=== PATIENT | female | born 1940 | race Caucasian/White ===

== ENCOUNTER 2017-05-05 05:32 | Inpatient (IN) | payer MEDICARE, SELFPAY ==
[2017-05-05] VITALS (10 sets, daily range): BP systolic 107–131; BP diastolic 64–79; PULSE 82–101; RESP 18–26; TEMP 36.6–37.1; O2SAT 89–98; BMI 19.0; BMI 20.3
--- NOTE | 2017-05-05 05:37 | NURSING ---
CALLED FOR EKG PER RN REQUEST, PULLED OLD EKG'S FOR
--- NOTE | 2017-05-05 05:47 | RAD_ITS ---
STUDY: X-RAY CHEST REASON FOR EXAM: Female, 76 years old. SOB WITH COUGH FOR SERVERAL WEEKS, NOT GETTING BETTER. HX OF ASTHMA. TECHNIQUE: Frontal and lateral views of the chest. COMPARISON: None. FINDINGS: Ill-defined groundglass opacities are seen in the right and left lung lower lobes may represent bilateral pneumonia. Hyperinflation is noted in both lungs suggesting COPD. There is no demonstrated pleural abnormality. Normal size heart. Normal mediastinum and vaibhav. Normal visualized pulmonary arteries. There is atherosclerotic calcification of the aortic arch with tortuosity. There are diffuse degenerative changes of the visualized thoracic spine. There is degenerative osteoarthritis of the bilateral shoulders. There is no demonstrated abnormality of the visualized soft tissue structures of the upper abdomen. RAD/Chest PA and Lateral IMPRESSION: Bilateral lower lobe pneumonia. Electronically Signed: Dm Stanton MD at 6:28 EST Tel , Service support ,
--- NOTE | 2017-05-05 05:47 | EKG12_ITS ---
Test Reason : SOB Blood Pressure : / mmHG Vent. Rate : 090 BPM Atrial Rate : 090 BPM P-R Int : 138 ms QRS Dur : 080 ms QT Int : 364 ms P-R-T Axes : 071 -12 060 degrees QTc Int : 445 ms Normal sinus rhythm Normal ECG Confirmed by RAIZA HDEZ ([id number]), electronic news gathering editor ARNOLD HADLEY ([id number]) on 05/06/2017 11:35:24 AM Referred By: ANGLE Confirmed By:RAIZA HDEZ
[2017-05-05] MEDS: Ipratropium/Albuterol Sulfate 3 ML AMPUL.NEB INHALATION (05:55)
[2017-05-05 06:18] LABS: Absolute Lymphocyte Count 1.49 X10^3/ul (0.83-4.51); Absolute Neutrophil Count 15.5 X10^3/uL (2.0-7.7); Basophil# 0.02 X10^3/uL; Basophil% 0.1 % (0-1); Differential Indicated SCAN CRITERIA MET; Eosinophil# 0.05 X10^3/uL; Eosinophils% 0.3 % (0-5); Hemoglobin 10.7 g/dl (12.0-15.0); Lymphocyte # 1.49 X10^3/ul (4.0); Lymphocyte % 7.8 % (19-41); Mean Corp Hgb Conc 32.4 g/gl (32-36); Mean Corpuscular Hgb 29.2 pg (27.0-32.0); Mean Corpuscular Volume 89.9 fL (81-99); Mean Platelet Vol. 10.2 fl (6.2-12.0); Monocyte# 1.81 X10^3/uL; Monocyte% 9.5 % (0-10); Neutrophil # 15.52 X10^3/uL (2.7-7.7); Neutrophil % 81.5 % (47-70); POSITIVE COUNT NO; POSITIVE DIFFERENTIAL YES; POSITIVE MORPHOLOGY NO; Platelet Count 362 K/mm3 (150-450); RBC Distribution Width CV 13.9 % (11.6-14.6); RBC Distribution Width SD 45.9 fl (35.1-43.9); Red Blood Count 3.67 M/mm3 (4.2-5.4); White Blood Count 19.1 K/mm3 (4.4-11.0)
--- NOTE | 2017-05-05 06:18 | ED.VISSUMM ---
- ER Visit Summary Date of Service: 05/05/17 Chief Complaint: Dyspnea, cough, wheeze History of Present Illness: The patient is a 76 F here with daughter who is additional informant presented with dyspnea, cough, wheeze for over 1 week. This report 3 weeks of symptoms, however daughter states not that long. She was seen here 6 days ago records noting having 4 days of symptoms. Daughter states diagnosed with COPD and flulike symptoms. She was sent home with symptomatic treatment. Patient with remote tobacco history. Asthma history. Daughter states he is memory history however undiagnosed dementia. Has appoint with Dr. Patel in 2 days. Denies chest pains. We discussed onset of symptoms and what has developed, patient unable to give definitive answers. Denies nausea, vomiting, diarrhea. Denies fever, chills, sweats. Denies any recent travel, surgeries, or immobilizations. No history of PE or DVT. Physical Examination: Vitals: Temp 97.9, pulse 101, respiration 23, blood pressure 107/79, pulse ox 89% room air. General: Alert and oriented to person and place, unable to tell year., no acute distress HEENT: Normocephalic, atraumatic. Moist mucosa membranes Neck: supple, nontender. Cardiovascular: Regular rate and rhythm, no murmurs Respiratory: Mild expiratory wheeze bilaterally, symmetric, no distress Abdomen: Soft, nontender, nondistended Extremities: Nontender, no edema, pulses intact ?4 Neuro: no focal neurological deficits. Test Results: EKG: Sinus rate of 90, no ST or T-wave changes. Artifacts at baseline. WBC 19, Cr. 0.8. Trop neg. d-dimer 2.2. CXR: bilateral basilar infitrate. Emergency Department Course and Treatment: Placed on O2 for hypoxia. Aerosol for mild wheezing. Reviewed records, negative w/u 6 days ago. No distress. mild tachycardia, low pulse ox. Cardiac w/u negative. WBC 19 from 14 6 days ago. low risk wells for PE, d-dimer obtained, elevated. CXR results bilat pneumonia. lactate and blood cx x 2 sent. Rocephin and zithromax IV for CAP. CTA chest ordered with elevated dimer. Discussed with Dr. Fall for admission. Vitals stable on re-evaluation. CTA confirms bilateral PNA. No PE. Treatment Plan: [] Disposition: Admit Impression: 1) sepsis 2) CAP 3) hypoxia This note was generated with [employer] dictation software. It may contain incorrect words, spelling, and punctuation that were not noted in review of the chart prior to signing ED Disposition - Plan for ED Patient: Disposition: Acute [facility] Chief Complaint: Shortness of Breath Diagnosis: Sepsis, Community acquired pneumonia, Hypoxia Referrals: Sofie Patel MD [Primary Care Provider] -
[2017-05-05 06:20] LABS: Anion Gap 10 (5-15); BUN 19 mg/dL (7-18); BUN/Creat Ratio 23.7 RATIO (10-20); Calcium,Total 9.3 mg/dL (8.5-10.1); Chloride 106 mmol/L (98-107); EST Glomerular Filtration Rate 74 mL/min (>60); Est Glom Filt Rate - Afr Amer 90 mL/min (>60); Estimated Creatinine Clearance 48.89 ml/min; Glucose 117 mg/dL (70-110); Potassium 3.2 mmol/L (3.5-5.1); Sodium Level 143 mmol/L (136-145)
[2017-05-05 06:21] LABS: D-Dimer Quantitative (DVT/PE) 2.22 FEU/ug/m (0.27-0.49)
--- NOTE | 2017-05-05 06:22 | ED.RN ---
LAB CALLS WITH CRITICAL RESULT, D-DIMER 2.22, DR. BARBOUR MADE AWARE.
--- NOTE | 2017-05-05 06:23 | CT_ITS ---
STUDY: CTA CHEST REASON FOR EXAM: Female, 76 years old. SOB. COUGH COPD RADIATION DOSAGE (If Supplied By Facility): CTDIvol = ( 9.92 ) mGy, DLP = ( 397.44 ) mGycm TECHNIQUE: The examination was performed with the intravenous administration of 75 ml of Isovue 370 contrast material. Post-processing of the angiographic images was performed, with multiplanar reformation and 3D reconstruction. Individualized dose optimization techniques were used for this CT. COMPARISON: None. FINDINGS: Normal enhancement of the main pulmonary artery and right and left pulmonary arteries. Normal enhancement of the bilateral peripheral pulmonary arteries. There is no demonstrated pulmonary embolism. There is atherosclerotic calcification of the aortic arch with tortuosity. There is no demonstrated aortic dissection. Normal heart and pericardium. Normal mediastinum. Normal hilar regions. Normal visualized trachea and bronchi. Diffuse ill-defined tree-in-bud opacities are seen in both lungs more prominent in lung bases consistent with bilateral pneumonia. Normal pulmonary parenchyma. Normal pleura. Normal chest wall structures. There are degenerative changes of thoracic spine. Normal visualized upper abdomen. CT/CTA Chest W/WO Contrast IMPRESSION: No demonstrated pulmonary embolism or arterial dissection. Bilateral pneumonia. Electronically Signed: Dm Stanton MD at 7:53 EST Tel , Service support ,
--- NOTE | 2017-05-05 07:02 | NURSING ---
DR NELSON IN ER
[2017-05-05] MEDS: Ceftriaxone 1 GM/50 ML BAG IV (07:16)
[2017-05-05 07:31] LABS: Lactic Acid 1.2 mmol/L (0.4-2.0)
--- NOTE | 2017-05-05 08:01 | HP.PCM_ITS ---
Problem List (1) COPD (chronic obstructive pulmonary disease) Status: Chronic (2) Depression Status: Chronic (3) Dementia Status: Suspected (4) Malnutrition Status: Suspected (5) Elevated d-dimer Status: Acute (6) Hypokalemia Status: Acute (7) Cough productive of purulent sputum Status: Acute (8) Shortness of breath Status: Acute (9) Hypertension Status: Chronic History of Present Illness Date of Admission: 05/05/17 Chief Complaint: Cough productive of green sputum with blood streaks, shortness of breath The patient is a 76 year old F with a past medical history of hypertension, COPD and depression who presented to the emergency room complaining of cough productive of green sputum with blood streaking and shortness of breath. She denies fever, chills, nausea, diarrhea, vomiting, abdominal pain, myalgias or arthralgias. She is with her family and they state she is more confused than her baseline. Vital signs at presentation to the emergency room were temperature 97.9, pulse rate 101, blood pressure 107/79, respiratory rate 23 and she was 89% saturated on room air. She does not have oxygen at home. She follows with Dr. Aguila as an OP and was last seen about 3 months ago. Significant lab included an elevated white blood cell count at 19.1 with left shift. Hemoglobin was low at 10.7 and the platelets were normal at 362,000. Potassium is low at 3.3 and the BUN is 19 with a creatinine of 0.8. Troponin was less than 0.02. D-dimer was elevated at 2.22 but the CTA of the chest was negative for pulmonary emboli. The CTA of the chest did show tree-in-bud appearance and was interpreted as bilateral pneumonia. EKG shows normal sinus rhythm with no suspicious ST or T-wave changes. She is being admitted to the hospital for PNA with hypoxemia. Past Medical History Past Medical History (Chronic Problems): Chronic Problems Hypertension (Chronic) Asthma (Chronic) COPD (chronic obstructive pulmonary disease) (Chronic) Depression (Chronic) Allergies lisinopril Allergy (Verified 05/05/17 05:37) Other orange juice [[place]erson Juice] Allergy (Verified 05/05/17 05:37) Rash Penicillins Allergy (Verified 05/05/17 05:37) Rash Home Medications: Ambulatory Orders Medication Instructions Recorded Atenolol 50 mg PO DAILY 12/05/13 Losartan Potassium [Cozaar] 25 mg PO DAILY 12/05/13 Montelukast [Singulair] 10 mg PO QHS 12/05/13 Calcium Carbonate [Calcium] 1,200 mg PO DAILY 09/24/14 Fluticasone 0.05% [Flonase Nasal 2 spray NASAL DAILY PRN PRN 09/24/14 [place]] Albuterol Inhaler [Ventolin Hfa] 1 - 2 puff INHALATION Q4H PRN PRN 04/29/17 #1 inhaler Aspirin E.C. 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 Denies: Difficulty Swallowing, Nasal Congestion, Post Nasal Drip, Sore Throat Cardiovascular: Denies: Chest Pain, Heaviness, Light Headedness, Orthopnea, Palpitations, Paroxysmal Noc. Dyspnea, Syncope Respiratory: Reports: Cough, Shortness of breath at rest, Shortness of breath upon exertion, Sputum production - Green with streaks of blood. Denies: Pleuritic Pain Gastrointestinal: Denies: Abdominal Pain, Diarrhea, Nausea, Vomiting Genitourinary: Denies: Dysuria Gynecological: Denies: Breast symptoms, Vaginal discharge Musculoskeletal: Reports: Joint stiffness. Denies: Arm Pain, Joint swelling Skin: Denies: Jaundice, Rash, Wounds Neurological: Reports: Confusion. Denies: Slurred speech, Focal weakness, Numbness, Tingling, Seizures Psychiatric: Reports: Depression Endocrine: Denies: Hx of Thyroiditis Hematologic/ Lymphatic: Denies: Hx of blood clot VTE Information - Inpt Only VTE Present on Admission: No VTE Mechan Device Prophylaxis: SCD's, Knee High RAIMUNDO Hose VTE Pharm Prophylaxis ordered?: Yes Patient Problems: Active and Suspected Problems Dementia (Suspected) Malnutrition (Suspected) Elevated d-dimer (Acute) Hypokalemia (Acute) Sepsis (Acute) Community acquired pneumonia (Acute) Hypoxia (Acute) - Physical Exam General: Alert, Confused - She is oriented to person and knows she is in the hospital but does not know the year or the season and tells me that she has been working in the garden. When she does not know the answer to a question she confabulates HEENT: Atraumatic, PERRLA, EOMI, - - [place] Oral: No Gingival or Mucosal Lesions/ Ulcerations, Dry Mucosa Neck: Supple, No JVD, Negative Carotid Bruits, No Nodes, Trachea Midline, - - Carotids have brisk upstroke and good pulse volume bilaterally Lungs: Diminished, Wheezes, - - She has a few coarse crackles, mostly in the bases. Cardiovascular: Regular rate, Regular Rhythm, Normal S1, Normal S2, No murmurs, No rub noted, No Gallop Abdomen: Bowel Sounds Present, Soft, Non Tender, Non-Distended Extremities: No clubbing, No cyanosis, No edema, Peripheral Pulses Normal Skin: No rashes, No breakdown Musculoskeletal: Muscle Wasting Lymphatic: - - No cervical or supraclavicular adenopathy Neurological: Cranial nerves II-XII grossly intact, Neuro grossly intact Psych/Mental Status: Depressed Vital Signs Temp Pulse Resp BP Pulse Ox 97.9 F 86 26 H 107/79 98 05/05/17 05:33 05/05/17 05:55 05/05/17 05:55 05/05/17 05:33 05/05/17 05:52 Oxygen Flow Rate 2 Oxygen Delivery Method Nasal Cannula Weight: 110 lb 10.753 oz Body Mass Index (BMI) 19.0 Laboratory Tests Past 24 Hrs 05/05/17 05/05/17 05/05/17 05:54 05:54 05:54 WBC 19.1 H RBC 3.67 L Hgb 10.7 L Hct 33.0 L MCV 89.9 MCH 29.2 MCHC 32.4 RDW 13.9 RDW Differential 45.9 H Plt Count 362 MPV 10.2 Immature Gran % (Auto) 0.800 Neut % (Auto) 81.5 H Lymph % (Auto) 7.8 L [place] % (Auto) 9.5 Eos % (Auto) 0.3 Baso % (Auto) 0.1 Absolute Neuts (auto) 15.5 H Absolute Lymphs (auto) 1.49 Total Counted Not Reportable D-Dimer Quant (PE/DVT) 2.22 H* Sodium 143 Potassium 3.2 L Chloride 106 Carbon Dioxide 27.0 Anion Gap 10 BUN 19 H Creatinine 0.80 Estim Creat Clear Calc 48.89 Est GFR (MDRD) Af Amer 90 Est GFR (MDRD) Non-Af 74 BUN/Creatinine Ratio 23.7 H Glucose 117 H Lactic Acid Calcium 9.3 Troponin I < 0.02 05/05/17 06:50 WBC RBC Hgb Hct MCV MCH MCHC RDW RDW Differential Plt Count MPV Immature Gran % (Auto) Neut % (Auto) Lymph % (Auto) [place] % (Auto) Eos % (Auto) Baso % (Auto) Absolute Neuts (auto) Absolute Lymphs (auto) Total Counted D-Dimer Quant (PE/DVT) Sodium Potassium Chloride Carbon Dioxide Anion Gap BUN Creatinine Estim Creat Clear Calc Est GFR (MDRD) Af Amer Est GFR (MDRD) Non-Af BUN/Creatinine Ratio Glucose Lactic Acid 1.2 Calcium Troponin I Assessment/Plan Active and Suspected Problems Dementia (Suspected) Malnutrition (Suspected) Elevated d-dimer (Acute) Hypokalemia (Acute) Sepsis (Acute) Community acquired pneumonia (Acute) Hypoxia (Acute) Impressions 1. Community-acquired pneumonia 2. Hypoxemia 3. Hypertension 4. Suspected malnutrition 5. Suspected dementia 6. COPD/asthma 7. Elevated d-dimer with no pulmonary emboli on CTA of the chest 8. Hypokalemia admit to the hospital initiate the PNA order set. Azithromycin and rocephin ordered. Received first dose in the ER consult Dr. Aguila and obtain his last PN and any PFT's Lovenox for DVT prophylaxis Duoneb aerosols Q 6H and Alb Q2H PRN steroids Will review the CTA with Dr. Aguila - I am concerned about the pleural based infiltrates She has a long smoking hx and has been losing weight and the D- Dimer is increased. Check a respiratory panel, influenza swab, urine for Legionella and streptococcal antigens and sputum culture. UA and urine culture W/U for treatable causes of dementia initiated Start Remeron at HS to stimulate the appetite Code Visit Inpatient E&M: 52987 Subs Hosp L3
--- NOTE | 2017-05-05 08:27 | NURSING ---
MED SURG CAP, HYPOXEMIA, EXAC OF COPD SEMENTI
[2017-05-05 10:11] LABS: AST(SGOT) 19 U/L (15-37); Alanine Aminotransfer ALT/SGPT 33 U/L (12-78); Albumin, Serum 2.8 g/dL (3.4-5.0); Alkaline Phosphatase 88 U/L (45-117); Bilirubin, Direct 0.15 mg/dL (0.00-0.30); Globulin 4.8 g/dL (2.2-4.2); Magnesium 1.7 mg/dL (1.6-2.6); Phosphorus 2.8 mg/dL (2.5-4.9); Protein, Total 7.6 g/dL (6.4-8.2)
--- NOTE | 2017-05-05 11:36 | NURSING ---
PT HAS GOTTEN UP WITHOUT USING CALL LIGHT X2 WITHIN 1/2 HOUR-WILL MOVE PT CLOSER TO DESK FOR SAFETY SOON A ROOM OPENS AND IS CLEANED
[2017-05-05 11:53] LABS: Mucous, Urine 0 SEEN /hpf (<or=2+)
[2017-05-05 11:55] LABS: Color, Urine Yellow (Yellow); Glucose, Dipstick Normal (Normal); Ketone-Dipstick Negative (Negative); Leukocyte Esterase-Dipstick 25 /ul (Negative); Nitrite-Dipstick Positive (Negative); Occult Blood-Urine 50 /ul (Negative); Protein-Dipstick 30 mg/dl (Negative); Urine Bilirubin Dipstick Negative (Negative); Urine Clarity Sl. Cloudy (Clear); Urine Urobilinogen Normal (Normal); Urine pH 6.5 (5.0 - 8.0)
[2017-05-05 12:01] LABS: Red Blood Cells-Urine 0-5 SEEN /hpf (0-5); Squamous Epithelial Cells - UA 0-5 SEEN /hpf (5-10); White Blood Cells 0-5 SEEN /hpf (0-5)
[2017-05-05 12:02] LABS: Bacteria 1+ /hpf (None Seen)
--- NOTE | 2017-05-05 12:05 | NURSING ---
I attempted to fax the release of information, but Mingo's office is closed for the day. It will need to be faxed tomorrow. . .
--- NOTE | 2017-05-05 17:37 | NURSING ---
PT MOVED TO ROOM 324 TO BE CLOSER TO DESK/SAFETY-BED EXIT REMAINS ON
[2017-05-05] MEDS: Ciprofloxacin 0.3% 2.5ml Bottle 1 DRP LEFT EYE (21:11)
[2017-05-05] MEDS: Sertraline 50 MG Tablet 75 MG PO (21:16)
[2017-05-05] MEDS: Mirtazapine 15 MG Tablet PO (21:16)
[2017-05-05] MEDS: Montelukast 10 MG Tablet PO (21:16)
[2017-05-06] VITALS (7 sets, daily range): BP systolic 107–149; BP diastolic 63–75; PULSE 61–96; RESP 16–20; TEMP 36.4–37.9; O2SAT 93–97
[2017-05-06 06:47] LABS: Hematocrit 31.5 % (37-47); Mean Corp Hgb Conc 31.7 g/gl (32-36); Mean Corpuscular Hgb 28.7 pg (27.0-32.0); Mean Corpuscular Volume 90.5 fL (81-99); Mean Platelet Vol. 10.3 fl (6.2-12.0); Platelet Count 371 K/mm3 (150-450); RBC Distribution Width CV 14.2 % (11.6-14.6); RBC Distribution Width SD 46.9 fl (35.1-43.9); Red Blood Count 3.48 M/mm3 (4.2-5.4); White Blood Count 19.6 K/mm3 (4.4-11.0)
--- NOTE | 2017-05-06 06:52 | PN_ITS ---
Patient Problems: Active and Suspected Problems Dementia (Suspected) Malnutrition (Suspected) Elevated d-dimer (Acute) Hypokalemia (Acute) Sepsis (Acute) Community acquired pneumonia (Acute) Hypoxia (Acute) Subjective: 76-year-old female admitted to the hospital on 05/05/2017 with community- acquired pneumonia, hypoxemia and exacerbation of COPD. Temp today is 100.3?F. Vital signs are stable. She is 94-95% saturated on a 3 L nasal cannula. Respiratory panel was negative. All lab was personally reviewed. Potassium is still mildly decreased at 3.4 despite supplementation. BUN is down to 16 and the creatinine is 0.72 today. She is somewhat drowsy today but wakes up and answers my questions. She is not tachypneic at rest. She does not appear to be in any distress. - Physical Exam General: Cooperative, No apparent distress HEENT: Atraumatic, PERRLA Oral: Dry Mucosa Neck: Supple, No JVD, Trachea Midline Lungs: Diminished, Wheezes - Wheezes are improving Cardiovascular: Regular rate, Regular Rhythm, Normal S1, Normal S2, No Gallop Abdomen: Bowel Sounds Present, Soft, Non Tender, Non-Distended Extremities: No cyanosis, No edema Skin: No rashes Neurological: Cranial nerves II-XII grossly intact, Neuro grossly intact Psych/Mental Status: Appropriate Vital Signs Temp Pulse Resp BP Pulse Ox 100.3 F H 96 20 H 145/75 H 94 05/06/17 03:30 05/06/17 03:30 05/06/17 03:30 05/06/17 03:30 05/06/17 03:30 Oxygen Flow Rate 3 Oxygen Delivery Method Nasal Cannula Weight: 111 lb 1.808 oz Body Mass Index (BMI) 20.3 Intake and Output for Last 24 Hours 05/04/17 05/05/17 05/06/17 23:59 23:59 23:59 Intake Total 300 / 300 Balance 300 / 300 Microbiology Past 72 Hours 05/05/17 11:00 Respiratory Panel (PCR) - Final Mucosa - Nasopharyngeal Laboratory Tests Past 24 Hrs 05/05/17 05/06/17 05/06/17 11:42 05:58 05:58 WBC Pending RBC Pending Hgb Pending Hct Pending MCV Pending MCH Pending MCHC Pending RDW Pending RDW Differential Pending Plt Count Pending Sodium Pending Potassium Pending Chloride Pending Carbon Dioxide Pending Anion Gap Pending BUN Pending Creatinine Pending Est GFR (MDRD) Af Amer Pending Est GFR (MDRD) Non-Af Pending BUN/Creatinine Ratio Pending Glucose Pending Calcium Pending Phosphorus Pending Magnesium Pending Total Bilirubin Pending AST Pending ALT Pending Alkaline Phosphatase Pending Total Protein Pending Albumin Pending Urine Color Yellow Urine Clarity Sl. Cloudy Urine pH 6.5 Ur Specific [place] 1.010 Urine Protein 30 H Urine Glucose (UA) Normal Urine Ketones Negative Urine Occult Blood 50 H Urine Nitrite Positive H Urine Bilirubin Negative Urine Urobilinogen Normal Ur Leukocyte Esterase 25 H Urine RBC 0-5 SEEN Urine WBC 0-5 SEEN Ur Squamous Epith Cells 0-5 SEEN Urine Bacteria 1+ Urine Mucus 0 SEEN Assessment/Plan Active and Suspected Problems Dementia (Suspected) Malnutrition (Suspected) Elevated d-dimer (Acute) Hypokalemia (Acute) Sepsis (Acute) Community acquired pneumonia (Acute) Hypoxia (Acute) Impressions 1. Community-acquired pneumonia. Has not been able to expectorate a sputum to send for culture or Gram stain. Her cough sounds loose. 2. Hypoxemia 3. Hypertension 4. malnutrition 5. Suspected dementia 6. COPD/asthma 7. Elevated d-dimer with no pulmonary emboli on CTA of the chest 8. Hypokalemia 9. Normochromic normocytic anemia Continue the Remeron for depression and to stimulate the appetite aerosols repeat a CXR in the AM prednisone 40 mg daily Ceftriaxone supplement K Recheck lab in the AM check TSH, ammonia Code Visit Inpatient E&M: 10862 Subs Hosp L2
[2017-05-06 07:01] LABS: Scan Indicated on CBC? Y/N NO
[2017-05-06 07:14] LABS: ALB/GLOB Ratio 0.5 RATIO (0.9-2.4); AST(SGOT) 25 U/L (15-37); Alanine Aminotransfer ALT/SGPT 30 U/L (12-78); Albumin, Serum 2.4 g/dL (3.4-5.0); Alkaline Phosphatase 95 U/L (45-117); Anion Gap 8 (5-15); BUN 16 mg/dL (7-18); BUN/Creat Ratio 22.2 RATIO (10-20); Chloride 107 mmol/L (98-107); Creatinine, Serum 0.72 mg/dL (0.55-1.02); EST Glomerular Filtration Rate 84 mL/min (>60); Est Glom Filt Rate - Afr Amer 101 mL/min (>60); Estimated Creatinine Clearance 39.04 ml/min; Globulin 4.6 g/dL (2.2-4.2); Glucose 88 mg/dL (70-110); Magnesium 1.9 mg/dL (1.6-2.6); Phosphorus 3.7 mg/dL (2.5-4.9); Potassium 3.4 mmol/L (3.5-5.1); Sodium Level 142 mmol/L (136-145)
[2017-05-06] MEDS: Losartan Potassium 25 MG Tablet PO (08:49)
[2017-05-06] MEDS: Aspirin E.C. 81 MG Tablet PO (08:49)
[2017-05-06] MEDS: Atenolol 50 MG Tablet PO (08:49)
[2017-05-06] MEDS: Ciprofloxacin 0.3% 2.5ml Bottle 1 DRP LEFT EYE ×4 (08:50→21:15)
[2017-05-06] MEDS: Calcium (Elemental) 500 MG Tablet 1000 MG PO (10:29)
[2017-05-06] MEDS: 0.9% NaCl Peripheral Flush Adult/Peds IV (11:15)
[2017-05-06] MEDS: Ceftriaxone 1 GM/50 ML BAG IV (11:15)
[2017-05-06 11:18] LABS: T4 Free Direct 1.58 ng/dL (0.76-1.46); Thyroid Stim Hormone (TSH) 0.21 uIU/mL (0.358-3.74)
--- NOTE | 2017-05-06 13:12 | CASEMGMT ---
JS MONTES called [id number] Diana Arguello who was listed as next of kin on chart. Patient is confused and alert to person. JS MONTES completed clinical nursing professor with Diana over the phone. Care providers, pharmacy, and demographics verified. See link attached. Diana states that she is unsure of discharge plan at this time. JS MONTES discussed different options with Diana including home with HHC, environmental engineering aide, assisted living and SNF. Patient has a daughter that is staying with her but is gone most day and patient is alone. Family has noticed over last couple months patient having more confusion. JS MONTES encouraged Diana to have family discuss patient's discharge needs and disposition. Diana stated that ideally they would like patient to discharge home and are interesting in HHC and private duty aides. JS MONTES left contact information with Diana and will follow-up in morning. Diana states she has no further needs or concerns at this time. CM to follow for discharge planning needs that may arise. Disposition Plan: TBD. JS MONTES will assist family will discharge planning. Anticipate home with [facility] and will provide resources for private duty aides.
[2017-05-06] MEDS: Ipratropium/Albuterol Sulfate 3 ML AMPUL.NEB INHALATION ×2 (13:25→19:40)
[2017-05-06] MEDS: Montelukast 10 MG Tablet PO (21:18)
[2017-05-06] MEDS: Mirtazapine 15 MG Tablet PO (21:18)
[2017-05-07] VITALS (9 sets, daily range): BP systolic 106–138; BP diastolic 56–64; PULSE 78–99; RESP 15–20; TEMP 36.7–36.9; O2SAT 94–95
[2017-05-07] MEDS: Ipratropium/Albuterol Sulfate 3 ML AMPUL.NEB INHALATION ×4 (01:15→19:09)
--- NOTE | 2017-05-07 05:55 | RAD_ITS ---
STUDY: X-RAY CHEST REASON FOR EXAM: Female, 76 years old. Cough. Pneumonia. TECHNIQUE: PA and lateral views of the chest. COMPARISON: Comparison is made with prior study dated May 05, 2017. FINDINGS: Hyperinflation. Persistent patchy infiltrates in both lower lobes worse on the left side. There has been mild improved aeration. There is no demonstrated pleural abnormality. Normal size heart. Normal mediastinum and vaibhav. Normal visualized pulmonary arteries. There is atherosclerotic calcification of the aortic arch with tortuosity. There are diffuse degenerative changes of the visualized thoracic spine. Normal visualized ribs, clavicles, and shoulders. There is no demonstrated abnormality of the visualized soft tissue structures of the upper abdomen. RAD/Chest PA and Lateral IMPRESSION: Since prior study, there has been mild improved aeration of the patchy infiltrates at both lower lobes. Electronically Signed: Hosea Cochran MD at 8:37 EST Tel [phone], Service support ,
[2017-05-07 08:28] LABS: Vitamin B12 1879 pg/mL (211-911)
[2017-05-07] MEDS: Sertraline 50 MG Tablet PO (08:36)
[2017-05-07] MEDS: Calcium (Elemental) 500 MG Tablet 1000 MG PO (08:36)
[2017-05-07] MEDS: Ciprofloxacin 0.3% 2.5ml Bottle 1 DRP LEFT EYE ×4 (08:36→21:09)
[2017-05-07] MEDS: Aspirin E.C. 81 MG Tablet PO (08:43)
[2017-05-07] MEDS: Atenolol 50 MG Tablet PO (08:43)
[2017-05-07] MEDS: Losartan Potassium 25 MG Tablet PO (08:43)
[2017-05-07] MEDS: 0.9% NaCl Peripheral Flush Adult/Peds IV (08:43)
--- NOTE | 2017-05-07 09:12 | CASEMGMT ---
JS MONTES received call from [id number] Diana. Diana stated that the family had discussed discharge options and they would like her to go to a SNF at discharge for rehab and then transition to home. Diana states the they would prefer [facility] for SNF. TANIA Vargas updated with request for SNF placement. JS MONTES will remain available for discharge needs that may arise.
--- NOTE | 2017-05-07 09:32 | CASEMGMT ---
Addendum entered by Dariana Vargas 05/07/17 09:48: Social Work Note Call from [facility] stating that she will not have any availability until 05/12. Placed call to Diana who would like an additional referral made to [facility]. Placed call to Anneliese who states she will review for appropriateness and update SW with their determination. Initial referral faxed to [facility]. MATTHEW Garcia Original Note: Social Work Note Referral received from JS Paredes - this date that pt's family is requesting placement and would like [facility]. Initial referral faxed and placed call to Eloisa at [facility] to update. Eloisa will notify if able to accept and initiate pre-cert. TANIA to continue to follow and assist with discharge planning. Plan: SNF pending acceptance and pre-cert. MATTHEW Garcia
[2017-05-07] MEDS: Ceftriaxone 1 GM/50 ML BAG IV (09:40)
--- NOTE | 2017-05-07 11:32 | CASEMGMT ---
Addendum entered by Dariana Vargas 05/07/17 13:16: Social Work Note VM from Eloisa stating that she may have a bed at [facility]. Placed return phone call and left message for Eloisa to call SW back. Return phone call from Anneliese at [facility], stating that they cannot accept the pt. SW to continue to follow and assist with discharge planning. MATTHEW Garcia Original Note: Social Work Note Placed call to Anneliese at [facility] and left vm inquiring if they had been able to review the referral and what their determination was. SW to continue to follow and assist with discharge planning. MATTHEW Garcia
--- NOTE | 2017-05-07 14:33 | CASEMGMT ---
Social Work Note Jovan also does not have a bed. Placed call to [facility] and Barbara confirms that they do not have a bed. Call to Mitra at [facility] who states she may come Wednesday or Wednesday, but would not review a referral until then. Placed call to Linda who states she does not have a bed at this time and could reevaluate on Wednesday if the pt is still here. Pt's name left on list. Placed call to pt's [id number], Diana, and informed of the above. Educate to other facilities such as [facility] ([place]), [facility] ([place] and [facility], [facility], and [facility] ([place]). Diana states she will call some family and get back to with preference. Will continue to follow and assist with discharge planning. Plan: SNF pending acceptance. MATTHEW Garcia
--- NOTE | 2017-05-07 15:15 | PCM.PROGNOTE ---
Patient Problems: Active and Suspected Problems Dementia (Suspected) Malnutrition (Suspected) Elevated d-dimer (Acute) Hypokalemia (Acute) Sepsis (Acute) Community acquired pneumonia (Acute) Hypoxia (Acute) Subjective: Day #3 Rocephin and azithromycin All events of the past 24 hours of been reviewed. She is afebrile. Vital signs are stable. She is 94% saturated on a 2 L nasal cannula currently. Fluid balance since admission is +2701 cc. TSH is low at 0.21 and the free T4 is elevated at 1.58. B12 is 1879. Urine is positive for a gram-negative abdifatah, lactose counter dish carrier. Sputum Gram stain has 2+ white blood cells with no organisms. Blood cultures had no growth after 48 hours. Respiratory culture is pending. Chest x-ray today shows some clearing of the patchy infiltrates in the bases of the lungs. She continues to have hyperinflation. She looks much better today. THe confusion has improved. she was appropriate with me......did not remember me from the ER or when I saw her yesterday. - Physical Exam General: Alert, Cooperative, No apparent distress HEENT: Atraumatic, PERRLA, EOMI, Normocephalic Oral: No Gingival or Mucosal Lesions/ Ulcerations, Dry Mucosa Neck: Supple, No JVD, No Nuchal Rigidity, Trachea Midline, Thyroid Normal Size and Texture Lungs: Rales - in the bases, Rhonchi, - - not tachypneic, no accessory muscle use, no conversational dyspnea. Cardiovascular: Regular Rhythm, Normal S1, Normal S2, No Gallop, - - increased resting HR. Abdomen: Bowel Sounds Present, Soft, Non Tender, Non-Distended Extremities: No clubbing, No cyanosis, No edema Neurological: Cranial nerves II-XII grossly intact, Neuro grossly intact Psych/Mental Status: Appropriate Vital Signs Temp Pulse Resp BP Pulse Ox 98.2 F 97 18 119/62 94 05/07/17 14:05 05/07/17 14:05 05/07/17 14:05 05/07/17 14:05 05/07/17 14:05 Oxygen Flow Rate 2 Oxygen Delivery Method Venturi Mask Weight: 111 lb 1.808 oz Body Mass Index (BMI) 20.3 Intake and Output for Last 24 Hours 05/05/17 05/06/17 05/07/17 23:59 23:59 23:59 Intake Total 300 / 300 1278 / 1278 1473 / 1473 Output Total 350 / 350 Balance 300 / 300 1278 / 1278 1123 / 1123 Microbiology Past 72 Hours 05/07/17 08:46 Gram Stain - Final Sputum, Expectorated/Coughed 05/05/17 11:42 Urine Culture - Final Urine, Clean Catch GNR lactose counter dish carrier 05/06/17 11:10 Streptococcus pneumoniae Antigen (M - Final Urine, Clean Catch 05/06/17 11:10 Legionella Antigen - Final Urine, Clean Catch 05/05/17 11:00 Respiratory Panel (PCR) - Final Mucosa - Nasopharyngeal Laboratory Tests Past 24 Hrs 05/06/17 05:58 Vitamin B12 1879 H Assessment/Plan Active and Suspected Problems Dementia (Suspected) Malnutrition (Suspected) Elevated d-dimer (Acute) Hypokalemia (Acute) Sepsis (Acute) Community acquired pneumonia (Acute) Hypoxia (Acute) Impressions 1. Community-acquired pneumonia. Has not been able to expectorate a sputum to send for culture or Gram stain. Her cough sounds loose. 2. Hypoxemia 3. Hypertension 4. malnutrition 5. Suspected dementia 6. COPD/asthma 7. Elevated d-dimer with no pulmonary emboli on CTA of the chest 8. Hypokalemia 9. Normochromic normocytic anemia Continue the Remeron for depression and to stimulate the appetite Decrease the Zoloft to 50 mg daily Check a T3 and anti-thyroid antibodies thyroid US Continue the antibiotics Add IS and PEP DC the IV fluids Ambulated 375 feet with PT today and FWW with SBA Ambulatory pulse ox on room air prior to discharge Continue the Prednisone 40 mg daily Recheck the lab in the AM Code Visit Inpatient E&M: 63244 Subs Hosp L2
--- NOTE | 2017-05-07 15:16 | US_ITS ---
STUDY: THYROID ULTRASOUND REASON FOR EXAM: Female, 76 years old. Abnormal laboratory values TECHNIQUE: Ultrasound evaluation of the thyroid was performed with real-time and static méndez-scale imaging. COMPARISON: None. FINDINGS: RIGHT LOBE: The right lobe of the thyroid gland measures 4.2 x 1.3 x 1.6 cm. There is a homogeneous echotexture. There is a solid nodule in the midpole measuring 4 mm. LEFT LOBE: The left lobe of the thyroid gland measures 3.8 x 1.5 x 1.9 cm. There is a homogeneous echotexture. There is a solid nodule in the midpole measuring 3 mm. There is a solid nodule in the inferior pole measuring 8 mm. ISTHMUS: The isthmus measures 2 mm . The regional lymph nodes are normal. US/Thyroid IMPRESSION: There are bilateral thyroid nodules. Thyroid gland is normal in size with homogenous echotexture and normal blood flow. Electronically Signed: Cisco Jaime MD at 0:58 EST , Service support ,
--- NOTE | 2017-05-07 15:19 | PN_ITS ---
Patient Problems: Active and Suspected Problems Dementia (Suspected) Malnutrition (Suspected) Elevated d-dimer (Acute) Hypokalemia (Acute) Sepsis (Acute) Community acquired pneumonia (Acute) Hypoxia (Acute) Subjective: Day #3 Rocephin and azithromycin All events of the past 24 hours of been reviewed. She is afebrile. Vital signs are stable. She is 94% saturated on a 2 L nasal cannula currently. Fluid balance since admission is +2701 cc. TSH is low at 0.21 and the free T4 is elevated at 1.58. B12 is 1879. Urine is positive for a gram-negative abdifatah, lactose boiler water tester. Sputum Gram stain has 2+ white blood cells with no organisms. Blood cultures had no growth after 48 hours. Respiratory culture is pending. Chest x-ray today shows some clearing of the patchy infiltrates in the bases of the lungs. She continues to have hyperinflation. She looks much better today. THe confusion has improved. she was appropriate with me......did not remember me from the ER or when I saw her yesterday. - Physical Exam General: Alert, Cooperative, No apparent distress HEENT: Atraumatic, PERRLA, EOMI, Normocephalic Oral: No Gingival or Mucosal Lesions/ Ulcerations, Dry Mucosa Neck: Supple, No JVD, No Nuchal Rigidity, Trachea Midline, Thyroid Normal Size and Texture Lungs: Rales - in the bases, Rhonchi, - - not tachypneic, no accessory muscle use, no conversational dyspnea. Cardiovascular: Regular Rhythm, Normal S1, Normal S2, No Gallop, - - increased resting HR. Abdomen: Bowel Sounds Present, Soft, Non Tender, Non-Distended Extremities: No clubbing, No cyanosis, No edema Neurological: Cranial nerves II-XII grossly intact, Neuro grossly intact Psych/Mental Status: Appropriate Vital Signs Temp Pulse Resp BP Pulse Ox 98.2 F 97 18 119/62 94 05/07/17 14:05 05/07/17 14:05 05/07/17 14:05 05/07/17 14:05 05/07/17 14:05 Oxygen Flow Rate 2 Oxygen Delivery Method Venturi Mask Weight: 111 lb 1.808 oz Body Mass Index (BMI) 20.3 Intake and Output for Last 24 Hours 05/05/17 05/06/17 05/07/17 23:59 23:59 23:59 Intake Total 300 / 300 1278 / 1278 1473 / 1473 Output Total 350 / 350 Balance 300 / 300 1278 / 1278 1123 / 1123 Microbiology Past 72 Hours 05/07/17 08:46 Gram Stain - Final Sputum, Expectorated/Coughed 05/05/17 11:42 Urine Culture - Final Urine, Clean Catch GNR lactose boiler water tester 05/06/17 11:10 Streptococcus pneumoniae Antigen (M - Final Urine, Clean Catch 05/06/17 11:10 Legionella Antigen - Final Urine, Clean Catch 05/05/17 11:00 Respiratory Panel (PCR) - Final Mucosa - Nasopharyngeal Laboratory Tests Past 24 Hrs 05/06/17 05:58 Vitamin B12 1879 H Assessment/Plan Active and Suspected Problems Dementia (Suspected) Malnutrition (Suspected) Elevated d-dimer (Acute) Hypokalemia (Acute) Sepsis (Acute) Community acquired pneumonia (Acute) Hypoxia (Acute) Impressions 1. Community-acquired pneumonia. Has not been able to expectorate a sputum to send for culture or Gram stain. Her cough sounds loose. 2. Hypoxemia 3. Hypertension 4. malnutrition 5. Suspected dementia 6. COPD/asthma 7. Elevated d-dimer with no pulmonary emboli on CTA of the chest 8. Hypokalemia 9. Normochromic normocytic anemia Continue the Remeron for depression and to stimulate the appetite Decrease the Zoloft to 50 mg daily Check a T3 and anti-thyroid antibodies thyroid US Continue the antibiotics Add IS and PEP DC the IV fluids Ambulated 375 feet with PT today and FWW with SBA Ambulatory pulse ox on room air prior to discharge Continue the Prednisone 40 mg daily Recheck the lab in the AM Code Visit Inpatient E&M: 19466 Subs Hosp L2
--- NOTE | 2017-05-07 15:24 | CASEMGMT ---
Social Work Note Call from Diana, inquiring about the [place] facilities. Inform that SW placed call to both, as well as [facility] and none are in network. Go through list of facilities over the phone and Diana states she will need to discuss further with family. Inform that SW will leave a list of in network facilities in the patient's room. Diana requests that SW leave this at the nurse's station as she fears the pt will try to get up to get the list if it is in the room. Diana to be in this evening and will update Wednesday SW with their determination. Pt will be here through the weekend pending placement and pre-cert unless family opts to take her home. MATTHEW GarciaW
[2017-05-07 17:02] LABS: Free T3 1.4 pg/mL (2.18-3.98)
[2017-05-07] MEDS: Mirtazapine 15 MG Tablet PO (21:09)
[2017-05-07] MEDS: Montelukast 10 MG Tablet PO (21:09)
[2017-05-08] VITALS (10 sets, daily range): BP systolic 109–113; BP diastolic 71–78; PULSE 63–95; RESP 15–20; TEMP 36.8–36.9; O2SAT 83–97
[2017-05-08] MEDS: Ipratropium/Albuterol Sulfate 3 ML AMPUL.NEB INHALATION ×2 (01:16→06:41)
[2017-05-08 07:11] LABS: Hemoglobin 9.4 g/dl (12.0-15.0); Mean Corp Hgb Conc 32.4 g/gl (32-36); Mean Corpuscular Hgb 29.6 pg (27.0-32.0); Mean Corpuscular Volume 91.2 fL (81-99); Mean Platelet Vol. 10.3 fl (6.2-12.0); Platelet Count 365 K/mm3 (150-450); RBC Distribution Width CV 13.6 % (11.6-14.6); Red Blood Count 3.18 M/mm3 (4.2-5.4); White Blood Count 21.2 K/mm3 (4.4-11.0)
[2017-05-08 07:18] LABS: Scan Indicated on CBC? Y/N NO
[2017-05-08 07:23] LABS: Anion Gap 8 (5-15); BUN 20 mg/dL (7-18); BUN/Creat Ratio 28.5 RATIO (10-20); Calcium,Total 8.9 mg/dL (8.5-10.1); Chloride 112 mmol/L (98-107); EST Glomerular Filtration Rate 87 mL/min (>60); Est Glom Filt Rate - Afr Amer 105 mL/min (>60); Estimated Creatinine Clearance 39.04 ml/min; Glucose 88 mg/dL (70-110); Magnesium 1.9 mg/dL (1.6-2.6); Potassium 3.3 mmol/L (3.5-5.1); Sodium Level 147 mmol/L (136-145)
[2017-05-08] MEDS: Ceftriaxone 1 GM/50 ML BAG IV (08:58)
[2017-05-08] MEDS: Ciprofloxacin 0.3% 2.5ml Bottle 1 DRP LEFT EYE ×4 (09:06→20:50)
[2017-05-08] MEDS: Calcium (Elemental) 500 MG Tablet 1000 MG PO (09:07)
[2017-05-08] MEDS: Aspirin E.C. 81 MG Tablet PO (09:07)
[2017-05-08] MEDS: Atenolol 50 MG Tablet PO (09:09)
[2017-05-08] MEDS: Sertraline 50 MG Tablet PO (09:09)
[2017-05-08] MEDS: Losartan Potassium 25 MG Tablet PO (09:09)
--- NOTE | 2017-05-08 11:40 | CASEMGMT ---
SOCIAL WORK: [id number], Diana, requested to meet with hospital social worker in patient's room. Introduced self accordingly; patient appeared pleasantly confused. Diana restated that family's first choice is [facility]; second choice is [facility] and third [facility]. She did, however, voice understanding that these facilities do not have any current openings and provided this SW with the following alternative choices in this order: [facility] and [facility]. SW advised [id number] that I will fax referrals today and that primary hospital social worker can follow up with facilities on Wednesday to determine bed availability. Reminded her that a pre-cert is required per insurance. Diana voiced understanding and agreement with above. No further needs or questions identified. Referral information, including PT/OT evaluations, faxed to Haley at [facility] and Vivien at [facility]; request for them to follow up with Mattie WE[facility], on Wednesday. Payton JO,ABIMBOLA
[2017-05-08] MEDS: ALPRAZolam 0.25 MG Tablet 0.125 MG PO (16:10)
--- NOTE | 2017-05-08 19:22 | PN_ITS ---
Patient Problems: Active and Suspected Problems Dementia (Suspected) Malnutrition (Suspected) Elevated d-dimer (Acute) Hypokalemia (Acute) Sepsis (Acute) Community acquired pneumonia (Acute) Hypoxia (Acute) Subjective: All events of the past 24 hours of been reviewed. Patient is very animated today and talkative. Pulse ox was 84% with ambulation on room air and 95% at rest on room air. He was 92% ambulating on 2 L nasal cannula. White blood cell count today is 21.2 but she is on high-dose steroids. Potassium is low at 3.3. BUN is 20 with a creatinine of 0.7 and the BUN is likely elevated secondary to steroids. Urine culture was positive for gram-negative abdifatah however patient only had less than 1000 colonies and this is contaminant. Thyroid ultrasound showed 3 solid nodules. He denies chest pain. Her cough is improving. - Physical Exam General: Alert, Cooperative, Confused, - HEENT: Atraumatic, PERRLA Oral: Moist Mucosa Neck: Supple, No Nodes, No Nuchal Rigidity, Trachea Midline Lungs: No rhonchi, Diminished, - - coarse crackkles in the bases. Not tachypneic and no conversational dyspnea. Cardiovascular: Regular Rhythm, Normal S1, Normal S2, No rub noted, No Gallop, - - resting HR is increased Abdomen: Bowel Sounds Present, Soft, Non Tender, Non-Distended Extremities: No clubbing, No cyanosis, No edema Skin: No rashes, No breakdown Neurological: Cranial nerves II-XII grossly intact, Neuro grossly intact Psych/Mental Status: Hallucinations - likely due to the hyperthyroidism Vital Signs Temp Pulse Resp BP Pulse Ox 98.2 F 63 18 109/71 92 05/08/17 09:30 05/08/17 12:57 05/08/17 12:57 05/08/17 09:30 05/08/17 16:00 Oxygen Flow Rate 2 Oxygen Delivery Method Nasal Cannula Weight: 111 lb 1.808 oz Body Mass Index (BMI) 20.3 Intake and Output for Last 24 Hours 05/06/17 05/07/17 05/08/17 23:59 23:59 23:59 Intake Total 1278 / 1278 2092 / 2092 550 / 550 Output Total 350 / 350 250 / 250 Balance 1278 / 1278 1742 / 1742 300 / 300 Microbiology Past 72 Hours 05/07/17 08:46 Gram Stain - Final Sputum, Expectorated/Coughed Respiratory Culture - Preliminary Culture exhibits no growth. 05/05/17 11:42 Urine Culture - Final Urine, Clean Catch GNR lactose ibm websphere portal developer 05/06/17 11:10 Streptococcus pneumoniae Antigen (M - Final Urine, Clean Catch 05/06/17 11:10 Legionella Antigen - Final Urine, Clean Catch Laboratory Tests Past 24 Hrs 05/08/17 05/08/17 05/08/17 06:41 06:41 06:41 WBC 21.2 H RBC 3.18 L Hgb 9.4 L Hct 29.0 L MCV 91.2 MCH 29.6 MCHC 32.4 RDW 13.6 RDW Differential 44.0 H Plt Count 365 MPV 10.3 Sodium 147 H Potassium 3.3 L Chloride 112 H Carbon Dioxide 27.0 Anion Gap 8 BUN 20 H Creatinine 0.70 Estim Creat Clear Calc 39.04 Est GFR (MDRD) Af Amer 105 Est GFR (MDRD) Non-Af 87 BUN/Creatinine Ratio 28.5 H Glucose 88 Calcium 8.9 Magnesium 1.9 PTH Intact Pending Assessment/Plan Active and Suspected Problems Dementia (Suspected) Malnutrition (Suspected) Elevated d-dimer (Acute) Hypokalemia (Acute) Sepsis (Acute) Community acquired pneumonia (Acute) Hypoxia (Acute) Impressions 1. Community-acquired pneumonia. 2. Hypoxemia 3. Hypertension 4. malnutrition 5. Suspected dementia 6. COPD/asthma 7. Elevated d-dimer with no pulmonary emboli on CTA of the chest 8. Hypokalemia 9. Normochromic normocytic anemia 10. hyperthyroidism with 3 solid nodules on the thyroid US. Thyroid antibodies pending. Continue the Remeron for depression and to stimulate the appetite Decrease the steroids Xanax PRN to calm her down a little. Thyroid nuclear scan on Wednesday.....if cold nodules will need a bx. Will need to follow up with Endocrinology going forward Start PTU after the thyroid US has been done Talked with her dtr-in-law Diana today and answered questions to her satisfaction. She thinks that pt will need to go to SNF at [place]. She will need a pre-cert. May need O2 at DC....will need an ambulatory pulse ox prior to discharge Convert to an oral antibiotic tomorrow Code Visit Inpatient E&M: 01397 Subs Hosp L2
[2017-05-08] MEDS: Mirtazapine 15 MG Tablet PO (20:49)
[2017-05-08] MEDS: Montelukast 10 MG Tablet PO (20:49)
[2017-05-09] VITALS (9 sets, daily range): BP systolic 102–141; BP diastolic 58–73; PULSE 78–83; RESP 15–20; TEMP 36.7–37.2; O2SAT 94–98
--- NOTE | 2017-05-09 07:03 | PCM.PROGNOTE ---
Patient Problems: Active and Suspected Problems Dementia (Suspected) Malnutrition (Suspected) Elevated d-dimer (Acute) Hypokalemia (Acute) Sepsis (Acute) Community acquired pneumonia (Acute) Hypoxia (Acute) Subjective: 76-year-old female admitted to the hospital with acute exacerbation of COPD secondary to community-acquired pneumonia. Found to be hyperthyroid with low TSH and elevated T4. Thyroid ultrasound reveals 3 solid nodules. Antithyroid antibodies pending. Thyroid nuclear scan ordered for 05/10/2017. If cold nodules will need a bx. She thinks her mother had thyroid disease. She has been afebrile since 05/06/2017. Vital signs are stable. She is 94-98% saturated on room air. Sputum Gram stain is presumptive for Maryam albicans only. Legionella and streptococcal antigens were negative. Urine has a gram-negative abdifatah lactose industrial gas servicer helper however there is less than 1000 colonies and this is likely contaminant. Blood cultures had no growth after the 8 hours. She has no complaints today except that she wants to go home. She is VERY talkative and has been trying to leave. She pulled 2 IV's out. She has less flight of ideas today than yesterday. Denies SOB, rare cough, no diarrhea and no nausea. - Physical Exam General: Alert, Cooperative, No apparent distress, Confused HEENT: Atraumatic, PERRLA, EOMI Oral: Moist Mucosa Neck: Supple Lungs: Clear to auscultation, No wheeze, No rales Cardiovascular: Regular rate, Regular Rhythm, Normal S1, Normal S2, No rub noted, No Gallop Abdomen: Bowel Sounds Present, Soft, Non Tender, Non-Distended Extremities: No edema, No Calf Tenderness Vital Signs Temp Pulse Resp BP Pulse Ox 98.2 F 78 15 141/73 H 98 05/09/17 04:43 05/09/17 04:43 05/09/17 04:43 05/09/17 04:43 05/09/17 04:43 Oxygen Flow Rate 3 Oxygen Delivery Method Nasal Cannula Weight: 111 lb 1.808 oz Body Mass Index (BMI) 20.3 Intake and Output for Last 24 Hours 05/07/17 05/08/17 05/09/17 23:59 23:59 23:59 Intake Total 2 / 2092 550 / 550 150 / 150 Output Total 350 / 350 250 / 250 Balance 1742 / 1742 300 / 300 150 / 150 Microbiology Past 72 Hours 05/07/17 08:46 Gram Stain - Final Sputum, Expectorated/Coughed Respiratory Culture - Preliminary Culture exhibits no growth. 05/05/17 11:42 Urine Culture - Final Urine, Clean Catch GNR lactose industrial gas servicer helper 05/06/17 11:10 Streptococcus pneumoniae Antigen (M - Final Urine, Clean Catch 05/06/17 11:10 Legionella Antigen - Final Urine, Clean Catch Laboratory Tests Past 24 Hrs 05/08/17 05/08/17 05/08/17 06:41 06:41 06:41 WBC 21.2 H RBC 3.18 L Hgb 9.4 L Hct 29.0 L MCV 91.2 MCH 29.6 MCHC 32.4 RDW 13.6 RDW Differential 44.0 H Plt Count 365 MPV 10.3 Sodium 147 H Potassium 3.3 L Chloride 112 H Carbon Dioxide 27.0 Anion Gap 8 BUN 20 H Creatinine 0.70 Estim Creat Clear Calc 39.04 Est GFR (MDRD) Af Amer 105 Est GFR (MDRD) Non-Af 87 BUN/Creatinine Ratio 28.5 H Glucose 88 Calcium 8.9 Magnesium 1.9 PTH Intact Pending Assessment/Plan Active and Suspected Problems Dementia (Suspected) Malnutrition (Suspected) Elevated d-dimer (Acute) Hypokalemia (Acute) Sepsis (Acute) Community acquired pneumonia (Acute) Hypoxia (Acute) Day #5 antibiotics Impressions 1. Community-acquired pneumonia. Started Rocephin and Azithromycin at admission...Will transition to Cedinir today since she has pulled her IV out twice and she is better 2. Hypoxemia 3. Hypertension 4. malnutrition 5. Suspected dementia vs metabolic encephalopathy due to hyperthyroidism 6. COPD/asthma with acute exacerbation treated with aerosols and steroids 7. Elevated d-dimer with no pulmonary emboli on CTA of the chest 8. Hypokalemia 9. Normochromic normocytic anemia 10. hyperthyroidism with 3 solid nodules on the thyroid US. Thyroid antibodies pending. 11. Depression Continue the Remeron for depression and to stimulate the appetite. Wean sertraline off over the next 10 days. Thyroid nuclear scan tomorrow - may need thyroid biopsy Will need to follow up with endocrinology to arrange definitive treatment for hyperthyroidism Start PTU after the nuclear scan - I suspect it will help with the hallucinations and hyperactivity. Ambulatory pulse ox on RA prior to DC DC the steroids today since they seem to be increasing the hyperactivity and flight of ideas Code Visit Inpatient E&M: 56931 Subs Hosp L2
[2017-05-09] MEDS: Ipratropium/Albuterol Sulfate 3 ML AMPUL.NEB INHALATION ×2 (07:08→13:24)
--- NOTE | 2017-05-09 07:09 | PN_ITS ---
Patient Problems: Active and Suspected Problems Dementia (Suspected) Malnutrition (Suspected) Elevated d-dimer (Acute) Hypokalemia (Acute) Sepsis (Acute) Community acquired pneumonia (Acute) Hypoxia (Acute) Subjective: 76-year-old female admitted to the hospital with acute exacerbation of COPD secondary to community-acquired pneumonia. Found to be hyperthyroid with low TSH and elevated T4. Thyroid ultrasound reveals 3 solid nodules. Antithyroid antibodies pending. Thyroid nuclear scan ordered for 05/10/2017. If cold nodules will need a bx. She thinks her mother had thyroid disease. She has been afebrile since 05/06/2017. Vital signs are stable. She is 94-98% saturated on room air. Sputum Gram stain is presumptive for Maryam albicans only. Legionella and streptococcal antigens were negative. Urine has a gram-negative abdifatah lactose pre assembly wirer however there is less than 1000 colonies and this is likely contaminant. Blood cultures had no growth after the 8 hours. She has no complaints today except that she wants to go home. She is VERY talkative and has been trying to leave. She pulled 2 IV's out. She has less flight of ideas today than yesterday. Denies SOB, rare cough, no diarrhea and no nausea. - Physical Exam General: Alert, Cooperative, No apparent distress, Confused HEENT: Atraumatic, PERRLA, EOMI Oral: Moist Mucosa Neck: Supple Lungs: Clear to auscultation, No wheeze, No rales Cardiovascular: Regular rate, Regular Rhythm, Normal S1, Normal S2, No rub noted , No Gallop Abdomen: Bowel Sounds Present, Soft, Non Tender, Non-Distended Extremities: No edema, No Calf Tenderness Vital Signs Temp Pulse Resp BP Pulse Ox 98.2 F 78 15 141/73 H 98 05/09/17 04:43 05/09/17 04:43 05/09/17 04:43 05/09/17 04:43 05/09/17 04:43 Oxygen Flow Rate 3 Oxygen Delivery Method Nasal Cannula Weight: 111 lb 1.808 oz Body Mass Index (BMI) 20.3 Intake and Output for Last 24 Hours 05/07/17 05/08/17 05/09/17 23:59 23:59 23:59 Intake Total 2 / 2092 550 / 550 150 / 150 Output Total 350 / 350 250 / 250 Balance 1742 / 1742 300 / 300 150 / 150 Microbiology Past 72 Hours 05/07/17 08:46 Gram Stain - Final Sputum, Expectorated/Coughed Respiratory Culture - Preliminary Culture exhibits no growth. 05/05/17 11:42 Urine Culture - Final Urine, Clean Catch GNR lactose pre assembly wirer 05/06/17 11:10 Streptococcus pneumoniae Antigen (M - Final Urine, Clean Catch 05/06/17 11:10 Legionella Antigen - Final Urine, Clean Catch Laboratory Tests Past 24 Hrs 05/08/17 05/08/17 05/08/17 06:41 06:41 06:41 WBC 21.2 H RBC 3.18 L Hgb 9.4 L Hct 29.0 L MCV 91.2 MCH 29.6 MCHC 32.4 RDW 13.6 RDW Differential 44.0 H Plt Count 365 MPV 10.3 Sodium 147 H Potassium 3.3 L Chloride 112 H Carbon Dioxide 27.0 Anion Gap 8 BUN 20 H Creatinine 0.70 Estim Creat Clear Calc 39.04 Est GFR (MDRD) Af Amer 105 Est GFR (MDRD) Non-Af 87 BUN/Creatinine Ratio 28.5 H Glucose 88 Calcium 8.9 Magnesium 1.9 PTH Intact Pending Assessment/Plan Active and Suspected Problems Dementia (Suspected) Malnutrition (Suspected) Elevated d-dimer (Acute) Hypokalemia (Acute) Sepsis (Acute) Community acquired pneumonia (Acute) Hypoxia (Acute) Day #5 antibiotics Impressions 1. Community-acquired pneumonia. Started Rocephin and Azithromycin at admission...Will transition to Cedinir today since she has pulled her IV out twice and she is better 2. Hypoxemia 3. Hypertension 4. malnutrition 5. Suspected dementia vs metabolic encephalopathy due to hyperthyroidism 6. COPD/asthma with acute exacerbation treated with aerosols and steroids 7. Elevated d-dimer with no pulmonary emboli on CTA of the chest 8. Hypokalemia 9. Normochromic normocytic anemia 10. hyperthyroidism with 3 solid nodules on the thyroid US. Thyroid antibodies pending. 11. Depression Continue the Remeron for depression and to stimulate the appetite. Wean sertraline off over the next 10 days. Thyroid nuclear scan tomorrow - may need thyroid biopsy Will need to follow up with endocrinology to arrange definitive treatment for hyperthyroidism Start PTU after the nuclear scan - I suspect it will help with the hallucinations and hyperactivity. Ambulatory pulse ox on RA prior to DC DC the steroids today since they seem to be increasing the hyperactivity and flight of ideas Code Visit Inpatient E&M: [id number] Subs Hosp L2
[2017-05-09] MEDS: Aspirin E.C. 81 MG Tablet PO (09:18)
[2017-05-09] MEDS: Calcium (Elemental) 500 MG Tablet 1000 MG PO (09:19)
[2017-05-09] MEDS: Ciprofloxacin 0.3% 2.5ml Bottle 1 DRP LEFT EYE ×4 (09:21→20:00)
[2017-05-09] MEDS: Sertraline 50 MG Tablet PO (09:24)
[2017-05-09] MEDS: Atenolol 50 MG Tablet PO (09:24)
[2017-05-09] MEDS: Losartan Potassium 25 MG Tablet PO (09:27)
[2017-05-09] MEDS: Ceftriaxone 1 GM/50 ML BAG IV (11:31)
--- NOTE | 2017-05-09 14:49 | NURSING ---
Pt had period of confusion earlier this afternoon. Pulled out IV and thought she was leaving. Notified Dr Fall that pt pulled IV, orders ok to leave out, abx switched to PO.
[2017-05-09] MEDS: ALPRAZolam 0.25 MG Tablet 0.125 MG PO (17:56)
[2017-05-09] MEDS: Mirtazapine 15 MG Tablet PO (19:59)
[2017-05-09] MEDS: Montelukast 10 MG Tablet PO (19:59)
[2017-05-09] MEDS: Cefdinir 300 MG Capsule PO (20:52)
[2017-05-10 02:00] VITALS: PULSE 74; RESP 15; O2SAT 94
[2017-05-10 05:07] VITALS: BP 138/71; PULSE 74; RESP 15; TEMP 36; O2SAT 94
--- NOTE | 2017-05-10 05:55 | RAD_ITS ---
STUDY: X-RAY CHEST REASON FOR EXAM: Female, 76 years old. History of pneumonia. Hypoxia. TECHNIQUE: PA and lateral views of the chest. COMPARISON: Comparison is made with prior study dated May 07, 2017. FINDINGS: Hyperinflation. Persistent bilateral patchy infiltrates worse in the lower lobes. Since prior study, there has been a mild improvement. There is no demonstrated pleural abnormality. Normal size heart. Normal mediastinum and vaibhav. Normal visualized pulmonary arteries. There is atherosclerotic calcification of the aortic arch with tortuosity. There are degenerative changes of the visualized thoracic spine. Normal visualized ribs, clavicles, and shoulders. There is evidence of a prior ventral hernia repair. RAD/Chest PA and Lateral IMPRESSION: Hyperinflation. Persistent bibasilar infiltrates. Since prior study, there has been further improvement. Electronically Signed: Hosea Cochran MD at 12:36 EST Tel [phone], Service support ,
[2017-05-10 06:30] LABS: Hematocrit 30.9 % (37-47); Hemoglobin 9.8 g/dl (12.0-15.0); Mean Corp Hgb Conc 31.7 g/gl (32-36); Mean Corpuscular Hgb 29.4 pg (27.0-32.0); Mean Corpuscular Volume 92.8 fL (81-99); Mean Platelet Vol. 10.5 fl (6.2-12.0); Platelet Count 401 K/mm3 (150-450); RBC Distribution Width SD 45.6 fl (35.1-43.9); Red Blood Count 3.33 M/mm3 (4.2-5.4); White Blood Count 15.4 K/mm3 (4.4-11.0)
[2017-05-10 06:49] LABS: Scan Indicated on CBC? Y/N NO
[2017-05-10 06:50] LABS: BUN 27 mg/dL (7-18); BUN/Creat Ratio 36.5 RATIO (10-20); Calcium,Total 8.8 mg/dL (8.5-10.1); Creatinine, Serum 0.74 mg/dL (0.55-1.02); EST Glomerular Filtration Rate 82 mL/min (>60); Est Glom Filt Rate - Afr Amer 99 mL/min (>60); Estimated Creatinine Clearance 39.04 ml/min; Glucose 81 mg/dL (70-110)
[2017-05-10 06:51] LABS: Anion Gap 6 (5-15); Chloride 106 mmol/L (98-107); Potassium 4.3 mmol/L (3.5-5.1); Sodium Level 143 mmol/L (136-145)
--- NOTE | 2017-05-10 06:52 | NURSING ---
INFORMED BY NUCLEAR MED THAT UNABLE TO DO THYROID IMAGING THIS AM BECAUSE PATIENT RCVD CONTRAST ON 05/[address] OF CHEST AND WILL HAVE TO WAIT 6 WEEKS.
[2017-05-10 07:45] VITALS: PULSE 85; RESP 16; O2SAT 95
[2017-05-10] MEDS: Ipratropium/Albuterol Sulfate 3 ML AMPUL.NEB INHALATION ×2 (07:45→13:33)
--- NOTE | 2017-05-10 08:26 | CASEMGMT ---
Addendum entered by Dariana Vargas 05/10/17 08:29: Social Work Note Return phone call from Chu. Updated to the information below and family in agreement. MATTHEW Garcia Original Note: Social Work Note Call from Linda, group product manager of TCU, stating that she now has a bed available and could initiate pre-cert. Pre-cert initiated. Placed call to pt's daughter in law, Chu to notify, and phone was picked up but no one on the other end and no option to leave a vm. SW to continue to follow and assist with discharge planning. Plan: TCU pending pre-cert. MATTHEW Garcia
[2017-05-10 09:00] LABS: PTHIN 19.6 pg/mL (18.4-80.1)
[2017-05-10 10:04] VITALS: BP 118/68; PULSE 96; RESP 20; TEMP 36.8; O2SAT 94
[2017-05-10] MEDS: Ciprofloxacin 0.3% 2.5ml Bottle 1 DRP LEFT EYE ×3 (10:07→17:28)
[2017-05-10] MEDS: Calcium (Elemental) 500 MG Tablet 1000 MG PO (10:08)
[2017-05-10] MEDS: Aspirin E.C. 81 MG Tablet PO (10:08)
[2017-05-10] MEDS: Cefdinir 300 MG Capsule PO (10:09)
[2017-05-10] MEDS: Sertraline 50 MG Tablet PO (10:09)
[2017-05-10] MEDS: Atenolol 50 MG Tablet PO (10:09)
[2017-05-10] MEDS: Losartan Potassium 25 MG Tablet PO (10:09)
[2017-05-10 13:32] VITALS: PULSE 83; RESP 16; O2SAT 89
--- NOTE | 2017-05-10 13:51 | CPS ---
pt placed back on 2 lpm
--- NOTE | 2017-05-10 14:02 | PCM.PN.HOSP ---
Patient Problems: Active and Suspected Problems Dementia (Suspected) Malnutrition (Suspected) Elevated d-dimer (Acute) Hypokalemia (Acute) Sepsis (Acute) Community acquired pneumonia (Acute) Hypoxia (Acute) Subjective: Patient was seen and examined. Waiting on TCU insurance precertification. Denies any chest pain or shortness of breath. No fevers noted. No acute events overnight. Patient was seen in consultation with his son, admits that patient has had cognitive impairment for the past 1 and half years with a [id number] help her with finances. Vitals/I&O's: Vital Signs Temp Pulse Resp BP Pulse Ox 98.2 F 83 16 118/68 89 05/10/17 10:04 05/10/17 13:32 05/10/17 13:32 05/10/17 10:04 05/10/17 13:32 Oxygen Flow Rate 2 Oxygen Delivery Method Room Air Weight: 50.4 kg Body Mass Index (BMI) 20.3 Intake and Output for Last 24 Hours 05/08/17 05/09/17 05/10/17 23:59 23:59 23:59 Intake Total 550 / 550 920 / 920 395 / 395 Output Total 250 / 250 Balance 300 / 300 920 / 920 395 / 395 General: Alert, Oriented x3, Cooperative, No apparent distress, - - on 3l nasal canula oxygen HEENT: Atraumatic, PERRLA, EOMI, Normocephalic Oral: Moist Mucosa Neck: Supple Lungs: Clear to auscultation, Normal air movement Cardiovascular: Regular rate, Regular Rhythm, Normal S1, Normal S2, No murmurs Abdomen: Bowel Sounds Present, Soft, Non Tender, Non-Distended, No Hepato-splenomegaly Extremities: No edema Skin: No rashes, No breakdown Musculoskeletal: No Tenderness to Palpation of Joints or Extremities Lymphatic: No Cervical, Supraclavicular, or Inguinal Adenopathy Neurological: Cranial nerves II-XII grossly intact Psych/Mental Status: Normal Affect, Appropriate Microbiology Past 72 Hours 05/07/17 08:46 Sputum, Expectorated/Coughed Gram Stain - Final 05/07/17 08:46 Sputum, Expectorated/Coughed Respiratory Culture - Final Presumptive C albicans Laboratory Results 05/08/17 06:41: PTH Intact 19.6 05/10/17 05:46: WBC 15.4 H, RBC 3.33 L, Hgb 9.8 L, Hct 30.9 L, MCV 92.8, MCH 29.4, MCHC 31.7 L, RDW 14.0, RDW Differential 45.6 H, Plt Count 401, MPV 10.5 05/10/17 05:46: Sodium 143, Potassium 4.3, Chloride 106, Carbon Dioxide 31.0, Anion Gap 6, BUN 27 H, Creatinine 0.74, Estim Creat Clear Calc 39.04, Est GFR (MDRD) Af Amer 99, Est GFR (MDRD) Non-Af 82, BUN/Creatinine Ratio 36.5 H, Glucose 81, Calcium 8.8 Current Medications Acetaminophen (Tylenol) 650 mg PO Q6H PRN PRN PRN Reason: PAIN Albuterol Sulfate (Ventolin Aerosols) 2.5 mg INHALATION Q2H PRN PRN PRN Reason: WHEEZING Albuterol/Ipratropium (Duoneb) 3 ml INHALATION Q6HWA.RT [facility] Last Admin: 05/10/17 13:33 Dose: 3 ml Alprazolam (Xanax) 0.125 mg PO TID PRN PRN PRN Reason: ANXIETY Last Admin: 05/09/17 17:56 Dose: 0.125 mg Aspirin (Ecotrin) 81 mg PO DAILY@0800 [facility] Last Admin: 05/10/17 10:08 Dose: 81 mg Atenolol (Tenormin (Beta Rui)) 50 mg PO DAILY [facility] Last Admin: 05/10/17 10:09 Dose: 50 mg Calcium Carbonate (Os-Fabián 500) [facility] Last Admin: 05/10/17 10:08 Dose: 1,000 mg Cefdinir (Omnicef [Equiv]) 300 mg PO Q12 [facility] Last Admin: 05/10/17 10:09 Dose: 300 mg Ciprofloxacin HCl (Ciloxan) 1 drop LEFT EYE 4X/DAY [facility] Stop: 05/11/17 22:01 Last Admin: 05/10/17 10:07 Dose: 1 drop Ketorolac Tromethamine (Acular Ls) 1 drop LEFT EYE 4X/DAY [facility] Last Admin: 05/10/17 10:08 Dose: 1 drop Losartan Potassium (Cozaar) 25 mg PO DAILY [facility] Last Admin: 01/22/18 10:09 Dose: 25 mg Magnesium Hydroxide (Milk Of Magnesia) 30 ml PO DAILY PRN PRN PRN Reason: Constipation Mirtazapine (Remeron) 15 mg PO DAILY@2100 [facility] Last Admin: 05/09/17 19:59 Dose: 15 mg Montelukast Sodium (Singulair) 10 mg PO QHS [facility] Last Admin: 05/09/17 19:59 Dose: 10 mg Potassium Chloride (K-Dur) 20 meq PO DAILYCM [facility] Last Admin: 05/10/17 10:09 Dose: 20 meq Prednisolone Acetate (Pred Forte 1 Ml) 1 drop LEFT EYE 4X/DAY [facility] Last Admin: 05/10/17 10:08 Dose: 1 drop Sertraline HCl (Zoloft) 50 mg PO QAM [facility] Last Admin: 05/10/17 10:09 Dose: 50 mg Sodium Chloride () 5 - 30 ml IV UD PRN PRN Reason: SALINE FLUSH Last Admin: 05/07/17 08:43 Dose: 10 ml Assessment/Plan Active and Suspected Problems Dementia (Suspected) Malnutrition (Suspected) Elevated d-dimer (Acute) Hypokalemia (Acute) Sepsis (Acute) Community acquired pneumonia (Acute) Hypoxia (Acute) 1. Community-acquired pneumonia, improved, on cefdinir now, 2. Acute hypoxic respiratory insufficiency secondary to community-acquired pneumonia, will continue to wean off oxygen for SPO2 of 94% 3. Hypertension 4. Suspected dementia vs metabolic encephalopathy due to hyperthyroidism 6. COPD/asthma with acute exacerbation treated with aerosols and steroids 7. Elevated d-dimer with no pulmonary emboli on CTA of the chest 8. Hypokalemia 9. Normochromic normocytic anemia 10. hyperthyroidism with 3 solid nodules on the thyroid US. Thyroid antibodies pending. 11. Depression 12. Disposition: DC to TCU when bed is ready
--- NOTE | 2017-05-10 14:05 | PN_ITS ---
Patient Problems: Active and Suspected Problems Dementia (Suspected) Malnutrition (Suspected) Elevated d-dimer (Acute) Hypokalemia (Acute) Sepsis (Acute) Community acquired pneumonia (Acute) Hypoxia (Acute) Subjective: Patient was seen and examined. Waiting on TCU insurance precertification. Denies any chest pain or shortness of breath. No fevers noted. No acute events overnight. Patient was seen in consultation with his son, admits that patient has had cognitive impairment for the past 1 and half years with a [id number] help her with finances. Vitals/I&O's: Vital Signs Temp Pulse Resp BP Pulse Ox 98.2 F 83 16 118/68 89 05/10/17 10:04 05/10/17 13:32 05/10/17 13:32 05/10/17 10:04 05/10/17 13:32 Oxygen Flow Rate 2 Oxygen Delivery Method Room Air Weight: 50.4 kg Body Mass Index (BMI) 20.3 Intake and Output for Last 24 Hours 05/08/17 05/09/17 05/10/17 23:59 23:59 23:59 Intake Total 550 / 550 920 / 920 395 / 395 Output Total 250 / 250 Balance 300 / 300 920 / 920 395 / 395 General: Alert, Oriented x3, Cooperative, No apparent distress, - - on 3l nasal canula oxygen HEENT: Atraumatic, PERRLA, EOMI, Normocephalic Oral: Moist Mucosa Neck: Supple Lungs: Clear to auscultation, Normal air movement Cardiovascular: Regular rate, Regular Rhythm, Normal S1, Normal S2, No murmurs Abdomen: Bowel Sounds Present, Soft, Non Tender, Non-Distended, No Hepato- splenomegaly Extremities: No edema Skin: No rashes, No breakdown Musculoskeletal: No Tenderness to Palpation of Joints or Extremities Lymphatic: No Cervical, Supraclavicular, or Inguinal Adenopathy Neurological: Cranial nerves II-XII grossly intact Psych/Mental Status: Normal Affect, Appropriate Microbiology Past 72 Hours 05/07/17 08:46 Sputum, Expectorated/Coughed Gram Stain - Final 05/07/17 08:46 Sputum, Expectorated/Coughed Respiratory Culture - Final Presumptive C albicans Laboratory Results 05/08/17 06:41: PTH Intact 19.6 05/10/17 05:46: WBC 15.4 H, RBC 3.33 L, Hgb 9.8 L, Hct 30.9 L, MCV 92.8, MCH 29.4, MCHC 31.7 L, RDW 14.0, RDW Differential 45.6 H, Plt Count 401, MPV 10.5 05/10/17 05:46: Sodium 143, Potassium 4.3, Chloride 106, Carbon Dioxide 31.0, Anion Gap 6, BUN 27 H, Creatinine 0.74, Estim Creat Clear Calc 39.04, Est GFR ( MDRD) Af Amer 99, Est GFR (MDRD) Non-Af 82, BUN/Creatinine Ratio 36.5 H, Glucose 81, Calcium 8.8 Current Medications Acetaminophen (Tylenol) 650 mg PO Q6H PRN PRN PRN Reason: PAIN Albuterol Sulfate (Ventolin Aerosols) 2.5 mg INHALATION Q2H PRN PRN PRN Reason: WHEEZING Albuterol/Ipratropium (Duoneb) 3 ml INHALATION Q6HWA.RT [facility] Last Admin: 05/10/17 13:33 Dose: 3 ml Alprazolam (Xanax) 0.125 mg PO TID PRN PRN PRN Reason: ANXIETY Last Admin: 05/09/17 17:56 Dose: 0.125 mg Aspirin (Ecotrin) 81 mg PO DAILY@0800 [facility] Last Admin: 05/10/17 10:08 Dose: 81 mg Atenolol (Tenormin (Beta Rui)) 50 mg PO DAILY [facility] Last Admin: 05/10/17 10:09 Dose: 50 mg [facility] ([facility]Fabián [facility]) [facility] Admin: 05/10/17 10:08 Dose: 1,000 mg Cefdinir (Omnicef [Equiv]) 300 mg PO Q12 [facility] Last Admin: 05/10/17 10:09 Dose: 300 mg Ciprofloxacin HCl (Ciloxan) 1 drop LEFT EYE 4X/DAY [facility] Stop: 05/11/17 22:01 Last Admin: 05/10/17 10:07 Dose: 1 drop Ketorolac Tromethamine (Acular Ls) 1 drop LEFT EYE 4X/DAY [facility] Last Admin: 05/10/17 10:08 Dose: 1 drop Losartan Potassium (Cozaar) 25 mg PO DAILY [facility] Last Admin: 01/22/18 10:09 Dose: 25 mg Magnesium Hydroxide (Milk Of Magnesia) 30 ml PO DAILY PRN PRN PRN Reason: Constipation Mirtazapine (Remeron) 15 mg PO DAILY@2100 [facility] Last Admin: 05/09/17 19:59 Dose: 15 mg Montelukast Sodium (Singulair) 10 mg PO QHS [facility] Last Admin: 05/09/17 19:59 Dose: 10 mg Potassium Chloride (K-Dur) 20 meq PO DAILYCM [facility] Last Admin: 05/10/17 10:09 Dose: 20 meq Prednisolone Acetate (Pred Forte 1 Ml) 1 drop LEFT EYE 4X/DAY [facility] Last Admin: 05/10/17 10:08 Dose: 1 drop Sertraline HCl (Zoloft) 50 mg PO QAM [facility] Last Admin: 05/10/17 10:09 Dose: 50 mg Sodium Chloride () 5 - 30 ml IV UD PRN PRN Reason: SALINE FLUSH Last Admin: 05/07/17 08:43 Dose: 10 ml Assessment/Plan Active and Suspected Problems Dementia (Suspected) Malnutrition (Suspected) Elevated d-dimer (Acute) Hypokalemia (Acute) Sepsis (Acute) Community acquired pneumonia (Acute) Hypoxia (Acute) 1. Community-acquired pneumonia, improved, on cefdinir now, 2. Acute hypoxic respiratory insufficiency secondary to community-acquired pneumonia, will continue to wean off oxygen for SPO2 of 94% 3. Hypertension 4. Suspected dementia vs metabolic encephalopathy due to hyperthyroidism 6. COPD/asthma with acute exacerbation treated with aerosols and steroids 7. Elevated d-dimer with no pulmonary emboli on CTA of the chest 8. Hypokalemia 9. Normochromic normocytic anemia 10. hyperthyroidism with 3 solid nodules on the thyroid US. Thyroid antibodies pending. 11. Depression 12. Disposition: DC to TCU when bed is ready
[2017-05-10 14:07] LABS: Thyroid Peroxidase AB 10 IU/mL (0-34)
[2017-05-10 14:20] VITALS: BP 106/54; PULSE 87; RESP 20; TEMP 36.8; O2SAT 95
--- NOTE | 2017-05-10 15:17 | CASEMGMT ---
Social Work Note Call from Linda stating that the pt's case has been given to medical review. Placed call to the pt's daughter in law, Diana, to update and inform that if it is denied, which is likely, they will need to privately pay for placement or return home at discharge which will be tomorrow. Educate that once sent to medical review is it very likely that insurance will deny. Understanding expressed and Diana states that she will check with family what their alternate plan will be. SW to f/u in the morning once insurance has made their determination. Dariana Vargas, ASSISTANT WINEMAKER BED SETTER
--- NOTE | 2017-05-10 16:16 | CASEMGMT ---
Social Work Note Call from Linda on TCU stating that the pt has been approved for placement. Paged physician who intends on discharging this date. Notified Diana. Pt to transfer to TCU this date. Plan: TCU for rehabilitation. MATTHEW Garcia FACTORY MANAGER
--- NOTE | 2017-05-10 16:53 | PCM.TXEXTCAR ---
- Diet 05/05/17 08:21 Diet: Regular Diet Food consistency:: Soft Liquid Consistency:: Regular/Thin Type of Dietary Supplement:: [place] Breakfast Is pt able to select menu?: No - Routine Orders/Code Status O2 Liters per Minute: 2 Litres/min O2 Frequency: Continuous Keep PO Greater than or Equal to (%): 94 Routine Lab Work: CBC - in 3 days, BMP - in 3 days, - - thyroid function test in 2-4 weeks, thyroid scan within a week - Therapies Weight Bearing: Weight bearing as tolerated Physical Therapy: Eval and Treat Occupational Therapy: Eval and Treat - Allergies/Procedures Done in Hospital Allergies/Adverse Reactions: Allergies lisinopril Allergy (Verified 05/05/17 05:37) Other orange juice [[place] Juice] Allergy (Verified 05/05/17 05:37) Rash Penicillins Allergy (Verified 05/05/17 05:37) Rash Procedures: None - Type of Care/Length of Stay Estimated LOS: Convalescent Care Less Than 30 days Type of Care Needed: Skilled Rehab Potential: Fair Prognosis: Fair - Additional Orders/Day of Discharge Day of Discharge: 05/10/17 - Dietary and Speech Recommendations Dietitian Recommendations/Changes: Will provide magic cup w/ meals to provide additional calories/protein if consumed. - Follow Up Care Primary Care Physician: Sofie Patel MD [Primary Care Provider] - Please follow up with your Primary Care Physician in: within 2 weeks of discharge
--- NOTE | 2017-05-10 17:01 | DS.PCM_ITS ---
Discharge Date and Diagnosis - Problem List Patient Problems: Active and Suspected Problems Hyperthyroidism (Acute) Acute delirium (Acute) Date of Admission: 05/05/17 Date of Discharge: 05/10/17 - Primary Discharge Diagnosis Active and Suspected Problems Dementia (Suspected) Malnutrition (Suspected) Elevated d-dimer (Acute) Hypokalemia (Acute) Sepsis (Acute) Community acquired pneumonia (Acute) Hypoxia (Acute) - Secondary Discharge Diagnosis Chronic Problems Hypertension (Chronic) Asthma (Chronic) COPD (chronic obstructive pulmonary disease) (Chronic) Depression (Chronic) Hospital Course and Treatment Imaging Results: Clinical Impression(s) from Imaging Studies Chest X-Ray 05/05/17 05:47 IMPRESSION: Bilateral lower lobe pneumonia. Electronically Signed: Dm Stanton MD at 6:28 EST Tel , Service support , Chest CTA 05/05/17 06:23 IMPRESSION: No demonstrated pulmonary embolism or arterial dissection. Bilateral pneumonia. Electronically Signed: Dm Stanton MD at 7:53 EST Tel , Service support , Chest X-Ray 05/07/17 05:55 IMPRESSION: Since prior study, there has been mild improved aeration of the patchy infiltrates at both lower lobes. Electronically Signed: Hosea Cochran MD at 8:37 EST Tel [phone], Service support , Thyroid Ultrasound 05/07/17 15:16 IMPRESSION: There are bilateral thyroid nodules. Thyroid gland is normal in size with homogenous echotexture and normal blood flow. Electronically Signed: Cisco Jaime MD at 0:58 EST , Service support , Chest X-Ray 05/10/17 05:55 IMPRESSION: Hyperinflation. Persistent bibasilar infiltrates. Since prior study, there has been further improvement. Electronically Signed: Hosea Cochran MD at 12:36 EST Tel [phone], Service support , None Operations: None Procedures: None Summary of Care Provided: 6-year-old female admitted to the hospital with acute exacerbation of COPD secondary to community-acquired pneumonia. Found to be hyperthyroid with low TSH and elevated T4. Thyroid ultrasound reveals 3 solid nodules. Antithyroid antibodies pending. Thyroid nuclear scan could not be done in the hospital and radiology says can be done in 6 weeks. Active management was as follows: 1. Community-acquired pneumonia, improved, initially on ceftriaxone and azithromycin, discharged on cefdinir to complete a week total antibiotics 2. Acute hypoxic respiratory insufficiency secondary to community-acquired pneumonia, 2 L of oxygen, was discharged on above the TCU 3. Hypertension, controlled 4. Suspected dementia vs metabolic encephalopathy due to hyperthyroidism, will need further evaluation in the outpatient on discharge from TCU 6. COPD/asthma with acute exacerbation, improved 7. Elevated d-dimer with no pulmonary emboli on CTA of the chest 8. Hypokalemia, resolved, recheck in 3 days 9. Normochromic normocytic anemia 10. Hyperthyroidism with 3 solid nodules on the thyroid US. Thyroid antibodies pending. Work-up and referral to real estate assistant in the outpatient in 2-4 weeks. 11. Depression Discharge Diet: Low fat/ Low Cholesterol, 2000 mg Sodium Diet Discharge Activity: Return to Normal Activity Home Medications: Medications to take at Discharge Atenolol 50 mg PO DAILY 12/05/13 Losartan Potassium [Cozaar] 25 mg PO DAILY 12/05/13 Montelukast [Singulair] 10 mg PO QHS 12/05/13 Calcium Carbonate [Calcium] 1,200 mg PO DAILY 09/24/14 Fluticasone 0.05% [Flonase Nasal [place]] 2 spray NASAL DAILY PRN PRN 09/24/14 Albuterol Inhaler [Ventolin Hfa] 1 - 2 puff INHALATION Q4H PRN PRN #1 inhaler Aspirin E.C. [Ecotrin] 81 mg PO DAILY@0800 04/29/17 Fluticasone/Vilanterol [Breo Ellipta 200-25 Mcg INH] 1 each IH QHS 04/29/17 Sertraline HCl [Zoloft] 75 mg PO QHS 04/29/17 Ciprofloxacin 0.3% [Ciloxan] 1 drop LEFT EYE 4X/DAY 05/05/17 Ketorolac Tromethamine [Acular] 1 drop LEFT EYE 4X/DAY 05/05/17 Prednisolone Acetate 1 drop LEFT EYE 4X/DAY 05/05/17 Cefdinir [Omnicef [equiv]] 300 mg PO Q12 05/10/17 Ipratropium/Albuterol Sulfate [Duoneb] 3 ml INHALATION Q6HWA.RT 05/10/17 Mirtazapine [Remeron] 15 mg PO DAILY@2100 05/10/17 Potassium Chloride [K-Dur] 20 meq PO DAILYCM 05/10/17 Other Amb Orders: Thyroid Uptake Single or Mult [NM] Time Frame: 6 Weeks, Facility: [facility], Location: [facility] Primary Care Physician: Sofie Patel MD [Primary Care Provider] - Please follow up with your Primary Care Physician in: within 2 weeks of discharge Disposition: [facility] facility Minutes spent on discharge:: 25 Patient Condition:: Stable Meaningful Use Info Meaningful Use Diagnoses (Choose all that apply): None applicable Code Visit Inpatient E&M: 77984 Disch Hosp
[2017-05-11 09:32] LABS: Thyroglobulin Antibody < 1.0 IU/mL (0.0-0.9)
== END 2017-05-10 17:59 | disposition skilled nursing facility (03) | DRG 194 ==
LOC: ED 08:33 → MS3 08:49
PROVIDERS: Admitting Provider Internal Medicine; Emergency Provider Emergency Medicine; Family Provider Internal Medicine; PCP Internal Medicine; Visit Provider Internal Medicine
DX: J18.9 Pneumonia, unspecified organism (principal); E46 Unspecified protein-calorie malnutrition; J44.0 Chronic obstructive pulmonary disease with (acute) lower respiratory infection; R06.89 Other abnormalities of breathing; F03.90 Unspecified dementia, unspecified severity, without behavioral disturbance, psychotic disturbance, mood disturbance, and anxiety; D64.9 Anemia, unspecified; E87.6 Hypokalemia; F32.9 Major depressive disorder, single episode, unspecified; I10 Essential (primary) hypertension; R09.02 Hypoxemia; Z68.20 Body mass index [BMI] 20.0-20.9, adult; E05.90 Thyrotoxicosis, unspecified without thyrotoxic crisis or storm; Z79.899 Other long term (current) drug therapy; Z87.891 Personal history of nicotine dependence
CPT/HCPCS: 36415; 71046; 71275; 76536; 80048; 80053; 80076; 81001; 82140; 82607; 83605; 83735; 83970; 84100; 84439; 84443; 84481; 84484; 85025; 85027; 85379; 86376; 86800; 87040; 87070; 87086; 87088; 87205; 87449; 87633; 93005; 94640; 94667; 94668; 97110; 97116; 97162; 97166; 97530; 97535; 97802; 99283; J7040; J7050; Q9967; A4216

== ENCOUNTER → 2017-05-25 14:18 | Outpatient (CLI) | payer MEDICARE, SELFPAY ==
[2017-05-25 17:02] LABS: Absolute Lymphocyte Count 1.65 X10^3/ul (0.83-4.51); Absolute Neutrophil Count 4.1 X10^3/uL (2.0-7.7); Basophil# 0.01 X10^3/uL; Basophil% 0.2 % (0-1); Eosinophil# 0.11 X10^3/uL; Eosinophils% 1.7 % (0-5); Hematocrit 34.8 % (37-47); Hemoglobin 10.9 g/dl (12.0-15.0); Lymphocyte # 1.65 X10^3/ul (4.0); Lymphocyte % 25.5 % (19-41); Mean Corp Hgb Conc 31.3 g/gl (32-36); Mean Corpuscular Hgb 29.2 pg (27.0-32.0); Mean Corpuscular Volume 93.3 fL (81-99); Mean Platelet Vol. 11.5 fl (6.2-12.0); Monocyte# 0.58 X10^3/uL; Neutrophil # 4.12 X10^3/uL (2.7-7.7); Neutrophil % 63.4 % (47-70); Platelet Count 319 K/mm3 (150-450); RBC Distribution Width CV 15.2 % (11.6-14.6); RBC Distribution Width SD 50.1 fl (35.1-43.9); Red Blood Count 3.73 M/mm3 (4.2-5.4); White Blood Count 6.5 K/mm3 (4.4-11.0)
[2017-05-25 17:10] LABS: POSITIVE COUNT NO; POSITIVE DIFFERENTIAL NO; POSITIVE MORPHOLOGY NO
[2017-05-25 18:03] LABS: ALB/GLOB Ratio 0.8 RATIO (0.9-2.4); AST(SGOT) 23 U/L (15-37); Alanine Aminotransfer ALT/SGPT 29 U/L (13-56); Albumin, Serum 3.4 g/dL (3.2-5.0); Alkaline Phosphatase 59 U/L (45-117); Anion Gap 9 (5-15); BUN 21 mg/dL (7-18); BUN/Creat Ratio 19.8 RATIO (10-20); Calcium,Total 9.1 mg/dL (8.5-10.1); Chloride 107 mmol/L (98-107); Creatinine, Serum 1.06 mg/dL (0.55-1.02); EST Glomerular Filtration Rate 54 mL/min (>60); Est Glom Filt Rate - Afr Amer 65 mL/min (>60); Glucose 90 mg/dL (74-106); Potassium 4.3 mmol/L (3.5-5.1); Protein, Total 7.4 g/dL (6.4-8.2); Sodium Level 142 mmol/L (136-145); Thyroid Stim Hormone (TSH) 0.95 uIU/mL (0.358-3.74)
[2017-05-26 08:49] LABS: Vitamin B12 1222 pg/mL (211-911)
[2017-05-27 13:21] LABS: Hep C Antibodies <0.1 s/co ratio (0.0-0.9)
[2017-05-28 03:48] LABS: Rapid Plasmin Reagin (RPR) NONREACTIVE (NONREACTIVE)
== END ==
PROVIDERS: Family Provider Internal Medicine; PCP Internal Medicine; Visit Provider Family Medicine Geriatric Medicine
DX: Z13.89 Encounter for screening for other disorder (principal); E55.9 Vitamin D deficiency, unspecified; G30.9 Alzheimer's disease, unspecified; I10 Essential (primary) hypertension
CPT/HCPCS: 36415; 80053; 82306; 82607; 82746; 84443; 85025; 86592; 86803

== ENCOUNTER → 2017-07-12 07:56 | Outpatient (CLI) | payer MEDICARE, SELFPAY ==
--- NOTE | 2017-07-12 07:59 | NM_ITS ---
CLINICAL: 76-year-old female with reported history of thyroid nodularity. I-123 THYROID UPTAKE and SCAN COMPARISON: Thyroid ultrasound report 05/07/2017 FINDINGS: The patient was administered a 333 uCi I-123 capsule by mouth. The 4-hour I-123 radioactive iodine thyroidal uptake was calculated to be 5.8 % (normal 5 to 25 %). The 24-hour I-123 radioactive iodine thyroidal uptake was calculated to be 11.4 % (normal 5 to 40 %). The I-123 thyroid scan demonstrates homogeneous radiopharmaceutical concentration throughout both lobes of a U -shaped thyroid gland. There are no colloidal parenchymal hypofunctioning cold nodules noted in either lobe of the thyroid gland. NM/Thyroid Uptake Single or Mult IMPRESSION: 1. NORMAL 4- and 24-hour I-123 radioactive iodine thyroidal uptakes. 2. The I-123 thyroid scan is consistent with stage I nodular colloid goiter secondary to the presence of isthmus visualization and the U-shaped thyroid gland. (Marlene et al, J Nucl Med 32: 1455, 1990). 3. No hypofunctioning-cold nodules are identified. Electronically Signed: Dave Macedo DO at 9:45 EDT Tel , Service support ,
== END ==
PROVIDERS: Family Provider Internal Medicine; PCP Internal Medicine; Visit Provider Family Medicine Geriatric Medicine
DX: E04.1 Nontoxic single thyroid nodule (principal)
CPT/HCPCS: 78012; 78014; A9516

== ENCOUNTER → 2017-07-13 08:13 | Outpatient (CLI) | payer MEDICARE, SELFPAY ==
--- NOTE | 2017-07-13 08:16 | HPBD_ITS ---
STUDY: DUAL ENERGY X-RAY ABSORPTIOMETRY / DXA REASON FOR EXAM: Female, 76 years old. Postmenopausal female. History of smoking. TECHNIQUE: Bone Mineral Density (BMD) measurements of lumbar spine and bilateral hips were obtained. COMPARISON: None. FINDINGS: Lumbar Spine (L1-L4): g/cm2 (1.015) / T-score (-1.4) / Z-score (0.4) Findings are suggestive of osteopenia with a moderate fracture risk. Left Femur Total: g/cm2 (0.731) / T-score (-2.2) / Z-score (-0.5) Left Femoral Neck: g/cm2 (0.738) / T-score (-2.2) / Z-score (-0.3) Right Femur Total: g/cm2 (0.732) / T-score (-2.2) / Z-score (-0.3) Right Femoral Neck: g/cm2 (0.734) / T-score (-2.2) / Z-score (-0.5) HPBD/Dexa Bone Density Study (HP) IMPRESSION: The patient is considered osteoporotic as outlined below according to World Andrew Organization (WHO) criteria with a high fracture risk. Reference Information: The T-score is the number of standard deviations above or below the standard which is normal for young adults at their peak bone mineral density. The World Health Organization (WHO) interprets the T-scores as follows: Above -1 Normal bone density Between -1 and -2.5 Osteopenia Equal to / or below -2.5 Osteoporosis As a practical clinical guideline, osteopenia may be graded as follows: Mild -1 through -1.5 Moderate -1.6 through -2.0 Severe -2.1 through -2.4 The Z-score is the number of standard deviations above or below age-matched controls. A Z-score of less than -1.5 would be considered abnormal. References: 1. NIH Osteoporosis and Related Bone Diseases http://www.osteo.org 2. International Society for Clinical Densitometry http://www.iscd.org 3. National Osteoporosis Foundation http://www.nof.org Electronically Signed: Dangelo Tidwell DO at 8:23 EDT Tel [phone], Service support ,
--- NOTE | 2017-07-13 08:16 | HPBI_ITS ---
MAMMOGRAPHY - BILATERAL SCREENING 3-D SHARMIN SYNTHESIS REASON FOR EXAM: Female, 76 years old. Bilateral Screening 3-D tomosynthesis PERTINENT HISTORY: Asymptomatic. No significant family history. TECHNIQUE: 2-D mammograms and 3-D Sharmin synthesis of the breast (s) were performed. CAD was performed. COMPARISON: 11/06/2014, 08/01/2012 mammograms. FINDINGS: The breast composition is composed of scattered fibroglandular density. Scattered benign calcifications are seen. No dense spiculated masses, abnormal microcalcification cluster, architectural distortion or dominant mass is identified. There is no adenopathy, skin thickening or nipple retraction. There has been no significant change since the prior study. HPBI/SCREENING MAMM (CAD), BILAT IMPRESSION: No mammographic signs of malignancy. Routine yearly mammograms recommended. ASSESSMENT CATEGORY: BIRADS Category 2: Benign. A letter regarding these results will be sent to the patient by the facility within 30 days. FOLLOW UP RECOMMENDATION: Yearly follow up mammogram recommended. (A) Approximately 10% of breast cancers are not detected by mammography. A normal mammogram should not delay biopsy of a clinically suspicious abnormality. Electronically Signed: Thierno Huizar, at 19:12 EDT Tel , Service support ,
== END ==
PROVIDERS: Family Provider Family Medicine Geriatric Medicine; PCP Family Medicine Geriatric Medicine; Visit Provider Family Medicine Geriatric Medicine
DX: Z78.0 Asymptomatic menopausal state (principal); Z12.31 Encounter for screening mammogram for malignant neoplasm of breast
CPT/HCPCS: 77063; 77067; 77080

== ENCOUNTER → 2017-08-25 16:21 | Outpatient (CLI) | payer MEDICARE, SELFPAY ==
[2017-08-25 17:02] LABS: Absolute Lymphocyte Count 1.67 X10^3/ul (0.83-4.51); Absolute Neutrophil Count 5.3 X10^3/uL (2.0-7.7); Basophil# 0.02 X10^3/uL; Basophil% 0.3 % (0-1); Eosinophil# 0.07 X10^3/uL; Eosinophils% 0.9 % (0-5); Hemoglobin 12.6 g/dl (12.0-15.0); Lymphocyte # 1.67 X10^3/ul (4.0); Lymphocyte % 21.7 % (19-41); Mean Corp Hgb Conc 31.5 g/gl (32-36); Mean Corpuscular Hgb 28.3 pg (27.0-32.0); Mean Corpuscular Volume 89.9 fL (81-99); Mean Platelet Vol. 10.2 fl (6.2-12.0); Monocyte# 0.62 X10^3/uL; Monocyte% 8.1 % (0-10); Neutrophil # 5.31 X10^3/uL (2.7-7.7); Neutrophil % 68.9 % (47-70); Platelet Count 267 K/mm3 (150-450); RBC Distribution Width CV 13.7 % (11.6-14.6); RBC Distribution Width SD 44.3 fl (35.1-43.9); Red Blood Count 4.45 M/mm3 (4.2-5.4); White Blood Count 7.7 K/mm3 (4.4-11.0)
[2017-08-25 17:03] LABS: POSITIVE COUNT NO; POSITIVE DIFFERENTIAL NO; POSITIVE MORPHOLOGY NO
[2017-08-25 17:34] LABS: ALB/GLOB Ratio 1.1 RATIO (0.9-2.4); AST(SGOT) 29 U/L (15-37); Alanine Aminotransfer ALT/SGPT 30 U/L (13-56); Albumin, Serum 3.8 g/dL (3.2-5.0); Alkaline Phosphatase 88 U/L (45-117); Anion Gap 7 (5-15); BUN 17 mg/dL (7-18); BUN/Creat Ratio 14.9 RATIO (10-20); Chloride 104 mmol/L (98-107); Creatinine, Serum 1.14 mg/dL (0.55-1.02); EST Glomerular Filtration Rate 49 mL/min (>60); Est Glom Filt Rate - Afr Amer 60 mL/min (>60); Globulin 3.6 g/dL (2.2-4.2); Glucose 92 mg/dL (74-106); Potassium 4.5 mmol/L (3.5-5.1); Protein, Total 7.4 g/dL (6.4-8.2); Sodium Level 141 mmol/L (136-145); Thyroid Stim Hormone (TSH) 2.78 uIU/mL (0.358-3.74)
[2017-08-25 17:56] LABS: Vitamin D,25 Hydroxy 40.2 ng/mL (29.95-100.01)
== END ==
PROVIDERS: Family Provider Family Medicine Geriatric Medicine; PCP Family Medicine Geriatric Medicine; Visit Provider Family Medicine Geriatric Medicine
DX: E55.9 Vitamin D deficiency, unspecified (principal); I10 Essential (primary) hypertension; N39.0 Urinary tract infection, site not specified
CPT/HCPCS: 36415; 80053; 82306; 84443; 85025; 87086; 87088

== ENCOUNTER → 2017-11-23 16:39 | Outpatient (CLI) | payer MEDICARE, SELFPAY ==
[2017-11-23 17:41] LABS: Absolute Lymphocyte Count 1.79 X10^3/ul (0.83-4.51); Absolute Neutrophil Count 4.9 X10^3/uL (2.0-7.7); Basophil# 0.02 X10^3/uL; Basophil% 0.3 % (0-1); Eosinophil# 0.18 X10^3/uL; Eosinophils% 2.3 % (0-5); Hematocrit 40.2 % (37-47); Hemoglobin 13.3 g/dl (12.0-15.0); Lymphocyte # 1.79 X10^3/ul (4.0); Lymphocyte % 22.9 % (19-41); Mean Corp Hgb Conc 33.1 g/gl (32-36); Mean Corpuscular Hgb 30.2 pg (27.0-32.0); Mean Corpuscular Volume 91.4 fL (81-99); Mean Platelet Vol. 10.4 fl (6.2-12.0); Monocyte# 0.93 X10^3/uL; Monocyte% 11.9 % (0-10); Neutrophil # 4.86 X10^3/uL (2.7-7.7); Neutrophil % 62.3 % (47-70); Platelet Count 297 K/mm3 (150-450); RBC Distribution Width CV 14.3 % (11.6-14.6); RBC Distribution Width SD 47.1 fl (35.1-43.9); White Blood Count 7.8 K/mm3 (4.4-11.0)
[2017-11-23 18:15] LABS: POSITIVE COUNT NO; POSITIVE DIFFERENTIAL NO; POSITIVE MORPHOLOGY NO
[2017-11-23 18:27] LABS: AST(SGOT) 24 U/L (15-37); Alanine Aminotransfer ALT/SGPT 24 U/L (13-56); Albumin, Serum 3.8 g/dL (3.2-5.0); Alkaline Phosphatase 116 U/L (45-117); Anion Gap 4 (5-15); BUN 14 mg/dL (7-18); BUN/Creat Ratio 12.8 RATIO (10-20); Calcium,Total 8.8 mg/dL (8.5-10.1); Chloride 104 mmol/L (98-107); Creatinine, Serum 1.09 mg/dL (0.55-1.02); EST Glomerular Filtration Rate 52 mL/min (>60); Est Glom Filt Rate - Afr Amer 63 mL/min (>60); Globulin 3.7 g/dL (2.2-4.2); Glucose 74 mg/dL (74-106); Potassium 3.9 mmol/L (3.5-5.1); Protein, Total 7.5 g/dL (6.4-8.2); Sodium Level 139 mmol/L (136-145)
== END ==
PROVIDERS: Family Provider Family Medicine Geriatric Medicine; PCP Family Medicine Geriatric Medicine; Visit Provider Family Medicine Geriatric Medicine
DX: E55.9 Vitamin D deficiency, unspecified (principal); I10 Essential (primary) hypertension
CPT/HCPCS: 36415; 80053; 82306; 84443; 85025

== ENCOUNTER → 2017-12-16 15:29 | Outpatient (CLI) | payer MEDICARE, SELFPAY | PROVIDERS: Family Provider Family Medicine Geriatric Medicine; PCP Family Medicine Geriatric Medicine; Visit Provider Family Medicine Geriatric Medicine | DX: E03.9 Hypothyroidism, unspecified (principal) ==

== ENCOUNTER 2018-01-11 08:57 | Outpatient (RCR) | payer MEDICARE, SELFPAY ==
--- NOTE | 2018-01-11 09:55 | HP.PTEVAL_ITS ---
Patient's Visit Information ADITI SAM is a 77 year old F referred to Physical Therapy by Ant Siu MD with a diagnosis of BPPV. Date of Evaluation: 01/11/18 Physical Therapist: Barbara Lozano - Visit Plan Frequency: 2x /Week Duration: 4 Weeks Plan: Re-check R hallpike for dizziness. Test balance. - Subjective Subjective: Pt reports that she gets dizzy when she gets out of bed or standing from a chair. She does not roll side in bed. She claims that the room is spinning when she stands up and gets off balance when she stands up. She does not think that it lasts more than a minute. Dr Siu tilted her head back to the right and he could see it in her eyes. This has been going on for awhile. He balance overall is pretty good. Pt has ringing in the R ear. - Objective -Hallpike to the L. -Hallpike to the R for upward torsional nystagmus that lasted about 40 seconds. Treated with R Eply from the Hallpike position. Re- tested the R Hallpike again and pt had no nystagmus and no dizziness. - Goals Goal 1:: Abolish dizziness Goal Time Frame: 2-4 Weeks Goal 2:: Test FGA Goal Time Frame: 4-6 Weeks Goal 3:: Pt to rise out of a chair slowly and make sure she has her balance before walking. Goal Time Frame: 4-6 Weeks - Rehabilitation Potential Rehabilitation Potential: Good - Anticipated Interventions Patient/Client Instruction: Educate patient on: Plan of Care For the Purpose of:: To improve gait and locomotor functions Therapeutic Exercise to Include: Balance training, Body mechanics, Gait and locomotor training, Passive ROM For the Purpose of:: To improve muscle performance and motor function, To improve ability to perform ADL's, To increase tolerance to activity/condition/position, To improve performance and independence with ADL's Manual Therapy Techniques to Include: Other Comment: EPLY For the Purpose of:: To improve ability to perform ADL's, To increase tolerance to activity/condition/position Thank you for the opportunity to evaluate your patient. For Medicare and Medicare HMO plans, please review the plan of care and approve it. It will need to be FAXED BACK to us at [phone] for Medicare purposes. Please let me know if there are questions or concerns regarding this plan of care. Physician Signature: Date:
--- NOTE | 2018-04-27 17:48 | HP.PTDCNRP_ITS ---
HP - Discharge Summary (1) - Patient Information ADITI SAM was seen in my office for initial evaluation on 01/11/18. The following Plan of Care was established for this patient: Initial Frequency: 2x /Week Initial Duration: 4 Weeks - Anticipated Interventions Patient/Client Instruction: Educate patient on: Plan of Care For the Purpose of:: To improve gait and locomotor functions Therapeutic Exercise to Include: Balance training, Body mechanics, Gait and locomotor training, Passive ROM For the Purpose of:: To improve muscle performance and motor function, To improve ability to perform ADL's, To increase tolerance to activity/condition/position, To improve performance and independence with ADL's Manual Therapy Techniques to Include: Other Comment: EPLY For the Purpose of:: To improve ability to perform ADL's, To increase tolerance to activity/condition/position This patient was last seen in our office 01/11/18. Pertinent comments regarding their Physical therapy will appear below: Pt did not schedule a follow up from the [facility]. SHe will be discharged at this time. At this point I will be discontinuing this patient from physical therapy. I would be happy to see this patient again in the future if found appropriate by the physician. Thank you! Barbara Lozano, MPT
== END 2018-01-11 19:00 | disposition home or self-care (01) ==
LOC: PT 08:57
PROVIDERS: Family Provider Family Medicine Geriatric Medicine; PCP Family Medicine Geriatric Medicine; Visit Provider Otolaryngology
DX: H81.10 Benign paroxysmal vertigo, unspecified ear (principal)
CPT/HCPCS: 97161

== ENCOUNTER → 2018-01-25 09:05 | Outpatient (CLI) | payer MEDICARE, SELFPAY ==
[2018-01-25 13:03] LABS: Thyroid Stim Hormone (TSH) 1.37 uIU/mL (0.358-3.74)
== END ==
PROVIDERS: Family Provider Family Medicine Geriatric Medicine; PCP Family Medicine Geriatric Medicine; Visit Provider Family Medicine Geriatric Medicine
DX: E03.9 Hypothyroidism, unspecified (principal)
CPT/HCPCS: 36415; 84443

== ENCOUNTER → 2018-02-25 10:27 | Outpatient (CLI) | payer MEDICARE, SELFPAY ==
[2018-02-25 12:12] LABS: Absolute Lymphocyte Count 1.96 X10^3/ul (0.83-4.51); Absolute Neutrophil Count 4.7 X10^3/uL (2.0-7.7); Basophil# 0.01 X10^3/uL; Basophil% 0.1 % (0-1); Eosinophil# 0.13 X10^3/uL; Eosinophils% 1.7 % (0-5); Hematocrit 42.1 % (37-47); Hemoglobin 13.6 g/dl (12.0-15.0); Lymphocyte # 1.96 X10^3/ul (4.0); Lymphocyte % 25.6 % (19-41); Mean Corp Hgb Conc 32.3 g/gl (32-36); Mean Corpuscular Hgb 29.9 pg (27.0-32.0); Mean Corpuscular Volume 92.5 fL (81-99); Monocyte# 0.86 X10^3/uL; Monocyte% 11.2 % (0-10); Neutrophil % 61.3 % (47-70); Platelet Count 283 K/mm3 (150-450); RBC Distribution Width CV 13.9 % (11.6-14.6); RBC Distribution Width SD 46.8 fl (35.1-43.9); Red Blood Count 4.55 M/mm3 (4.2-5.4); White Blood Count 7.7 K/mm3 (4.4-11.0)
[2018-02-25 12:16] LABS: POSITIVE COUNT NO; POSITIVE DIFFERENTIAL NO; POSITIVE MORPHOLOGY NO
[2018-02-25 12:41] LABS: AST(SGOT) 22 U/L (15-37); Alanine Aminotransfer ALT/SGPT 26 U/L (13-56); Albumin, Serum 3.6 g/dL (3.2-5.0); Alkaline Phosphatase 71 U/L (45-117); Anion Gap 7 (5-15); BUN 15 mg/dL (7-18); BUN/Creat Ratio 15.7 RATIO (10-20); Calcium,Total 8.2 mg/dL (8.5-10.1); Chloride 105 mmol/L (98-107); Creatinine, Serum 0.96 mg/dL (0.55-1.02); EST Glomerular Filtration Rate 60 mL/min (>60); Est Glom Filt Rate - Afr Amer 73 mL/min (>60); Globulin 3.5 g/dL (2.2-4.2); Glucose 91 mg/dL (74-106); Potassium 4.1 mmol/L (3.5-5.1); Protein, Total 7.1 g/dL (6.4-8.2); Sodium Level 138 mmol/L (136-145); Thyroid Stim Hormone (TSH) 1.52 uIU/mL (0.358-3.74)
[2018-02-25 13:15] LABS: Vitamin D,25 Hydroxy 25.5 ng/mL (29.95-100.01)
== END ==
PROVIDERS: Family Provider Family Medicine Geriatric Medicine; PCP Family Medicine Geriatric Medicine; Visit Provider Family Medicine Geriatric Medicine
DX: E55.9 Vitamin D deficiency, unspecified (principal); I10 Essential (primary) hypertension
CPT/HCPCS: 36415; 80053; 82306; 84443; 85025

== ENCOUNTER → 2018-03-14 07:44 | Outpatient (CLI) | payer MEDICARE, SELFPAY ==
--- NOTE | 2018-03-14 07:48 | CT_ITS ---
STUDY: LOW DOSE CT LUNG CANCER SCREENING REASON FOR EXAM: Female, 77 years old. 27 pack year history. RADIATION DOSAGE (If Supplied By Facility): CTDIvol = ( 1.70 ) mGy, DLP = ( 54.88 ) mGycm TECHNIQUE: No contrast was administered. Low dose technique was utilized (average mAS-38 and kVp 120). 1.25 mm axial source images with a slice interval of 1.25-mm were reconstructed in lung windows. 2.5 mm axial source images with a slice interval of 2.5-mm were reconstructed in lung windows. 5.0 mm axial source images with a slice interval of 5.0-mm were reconstructed in soft tissue windows. Nodule measured using lung windows on PACS and/or independent workstation with automated measurement of minimum and maximum diameter. Nodule measurement reported as average diameter rounded to the nearest whole number. Growth is defined as an increase ins size of greater than 1.5 mm. COMPARISON: Chest, May 10, 2017. CTA of the chest, May 05, 2017 NODULES: Nodule #: 1 Density: Solid Lung location: Left upper lobe: 0.6 cm from pleura Location in series: Series Number: 1002 Image: 31 Size - D1 x D2 mm: 4 x 3 mm: 4 mm average diameter Margin: Smooth Shape: Triangular Calcification: No Fat: No Temporal comparison: Stable Nodule #: 2 Density: Solid Lung location: Right upper lobe: Pleural-based Location in series: Series Number: 1002 Image: 43 Size - D1 x D2 mm: 3 x 3 mm: Evaluate average diameter Margin: Smooth Shape: Rounded Calcification: No Fat: No Temporal comparison: Stable Total lung nodules (excluding granulomas): 2 Emphysema: Yes. The reticulonodular infiltrate seen throughout the lungs on the previous study have resolved. Endobronchial lesion: No Aorta: There is atherosclerotic tortuosity of the thoracic aorta without aneurysm. Coronary arteries: There are coronary artery calcifications. Heart: The heart is normal in size. Pulmonary artery: Normal Mediastinal nodes: Not Other chest and abdominal findings: There is degenerative changes of the thoracic spine. CT/Low Dose CT Lung Screening IMPRESSION: Lung-RADS category 2 - Continue annual screening with LDCT in 12 months. IMPORTANT NOTES FOR USE: ACR Lung-RADS Version 1.0 Assessment Categories Release Date: August 14, 2013 Category: Coded 0-4 bases on nodule(s) with highest degree of suspicion. Negative screen is defined as categories 1 and 2; a positive screen is defined as categories 3 and 4. Category 3 and 4A nodules that are unchanged on interval CT should be coded as category 2, and individuals returned to screening in 12 months. Category 4X: Category 3 or 4 nodules with additional imaging findings that increase the suspicion of lung cancer, such as spiculation, GGN that doubles in size in 1 year, enlarged lymph notes, etc. Category Modifiers: S (significant finding unrelated to lung cancer) and C (prior history of treated lung cancer) may be added to the 0-4 Lung-RADS Electronically Signed: Dangelo Tidwell DO at 23:37 EST Tel [phone], Service support ,
== END ==
PROVIDERS: Family Provider Family Medicine Geriatric Medicine; PCP Family Medicine Geriatric Medicine; Referring Provider Internal Medicine Pulmonary Disease; Visit Provider Internal Medicine Pulmonary Disease
DX: Z12.2 Encounter for screening for malignant neoplasm of respiratory organs (principal); Z87.891 Personal history of nicotine dependence
CPT/HCPCS: G0297

== ENCOUNTER → 2018-05-27 11:04 | Outpatient (CLI) | payer MEDICARE, SELFPAY ==
[2018-05-27 13:12] LABS: Absolute Lymphocyte Count 2.14 X10^3/ul (0.83-4.51); Absolute Neutrophil Count 4.8 X10^3/uL (2.0-7.7); Basophil# 0.01 X10^3/uL; Basophil% 0.1 % (0-1); Eosinophil# 0.11 X10^3/uL; Eosinophils% 1.4 % (0-5); Hemoglobin 13.9 g/dl (12.0-15.0); Lymphocyte # 2.14 X10^3/ul (4.0); Lymphocyte % 27.4 % (19-41); Mean Corp Hgb Conc 32.3 g/gl (32-36); Mean Corpuscular Hgb 30.6 pg (27.0-32.0); Mean Corpuscular Volume 94.7 fL (81-99); Mean Platelet Vol. 10.7 fl (6.2-12.0); Monocyte# 0.76 X10^3/uL; Monocyte% 9.7 % (0-10); Neutrophil # 4.78 X10^3/uL (2.7-7.7); Neutrophil % 61.3 % (47-70); Platelet Count 273 K/mm3 (150-450); RBC Distribution Width CV 13.6 % (11.6-14.6); RBC Distribution Width SD 45.6 fl (35.1-43.9); Red Blood Count 4.54 M/mm3 (4.2-5.4); White Blood Count 7.8 K/mm3 (4.4-11.0)
[2018-05-27 13:13] LABS: POSITIVE COUNT NO; POSITIVE DIFFERENTIAL NO; POSITIVE MORPHOLOGY NO
[2018-05-27 13:48] LABS: Vitamin D,25 Hydroxy 21.2 ng/mL (29.95-100.01)
[2018-05-27 13:56] LABS: ALB/GLOB Ratio 1.1 RATIO (0.9-2.4); AST(SGOT) 24 U/L (15-37); Alanine Aminotransfer ALT/SGPT 25 U/L (13-56); Albumin, Serum 3.6 g/dL (3.2-5.0); Alkaline Phosphatase 63 U/L (45-117); Anion Gap 6 (5-15); BUN 17 mg/dL (7-18); BUN/Creat Ratio 15.9 RATIO (10-20); Calcium,Total 9.1 mg/dL (8.5-10.1); Chloride 106 mmol/L (98-107); Creatinine, Serum 1.07 mg/dL (0.55-1.02); EST Glomerular Filtration Rate 53 mL/min (>60); Est Glom Filt Rate - Afr Amer 64 mL/min (>60); Globulin 3.4 g/dL (2.2-4.2); Glucose 102 mg/dL (74-106); Potassium 4.1 mmol/L (3.5-5.1); Sodium Level 141 mmol/L (136-145); Thyroid Stim Hormone (TSH) 1.14 uIU/mL (0.358-3.74)
== END ==
PROVIDERS: Family Provider Family Medicine Geriatric Medicine; PCP Family Medicine Geriatric Medicine; Visit Provider Family Medicine Geriatric Medicine
DX: E55.9 Vitamin D deficiency, unspecified (principal); I10 Essential (primary) hypertension
CPT/HCPCS: 36415; 80053; 82306; 84443; 85025

== ENCOUNTER → 2018-09-19 | Outpatient (CLI) | payer MEDICARE, SELFPAY ==
[2018-09-19 12:36] LABS: Absolute Lymphocyte Count 1.96 X10^3/ul (0.83-4.51); Absolute Neutrophil Count 5.4 X10^3/uL (2.0-7.7); Basophil# 0.02 X10^3/uL; Basophil% 0.2 % (0-1); Eosinophil# 0.11 X10^3/uL; Eosinophils% 1.3 % (0-5); Hematocrit 43.5 % (37-47); Hemoglobin 14.2 g/dl (12.0-15.0); Lymphocyte # 1.96 X10^3/ul (4.0); Lymphocyte % 23.5 % (19-41); Mean Corp Hgb Conc 32.6 g/gl (32-36); Mean Platelet Vol. 10.7 fl (6.2-12.0); Monocyte# 0.85 X10^3/uL; Monocyte% 10.2 % (0-10); Neutrophil # 5.39 X10^3/uL (2.7-7.7); Neutrophil % 64.7 % (47-70); Platelet Count 296 K/mm3 (150-450); RBC Distribution Width SD 46.1 fl (35.1-43.9); Red Blood Count 4.73 M/mm3 (4.2-5.4); White Blood Count 8.3 K/mm3 (4.4-11.0)
[2018-09-19 12:48] LABS: POSITIVE COUNT NO; POSITIVE DIFFERENTIAL NO; POSITIVE MORPHOLOGY NO
[2018-09-19 13:03] LABS: AST(SGOT) 26 U/L (15-37); Alanine Aminotransfer ALT/SGPT 32 U/L (13-56); Albumin, Serum 3.6 g/dL (3.2-5.0); Alkaline Phosphatase 58 U/L (45-117); Anion Gap 9 (5-15); BUN 18 mg/dL (7-18); BUN/Creat Ratio 18.1 RATIO (10-20); Calcium,Total 8.6 mg/dL (8.5-10.1); Chloride 109 mmol/L (98-107); Creatinine, Serum 0.99 mg/dL (0.55-1.02); EST Glomerular Filtration Rate 58 mL/min (>60); Est Glom Filt Rate - Afr Amer 70 mL/min (>60); Globulin 3.6 g/dL (2.2-4.2); Glucose 79 mg/dL (74-106); Potassium 4.6 mmol/L (3.5-5.1); Protein, Total 7.2 g/dL (6.4-8.2); Sodium Level 143 mmol/L (136-145); Thyroid Stim Hormone (TSH) 1.36 uIU/mL (0.358-3.74)
== END | disposition home or self-care (01) ==
PROVIDERS: Family Provider Family Medicine Geriatric Medicine; PCP Family Medicine Geriatric Medicine; Visit Provider Family Medicine Geriatric Medicine
DX: F05 Delirium due to known physiological condition (principal); N39.0 Urinary tract infection, site not specified
CPT/HCPCS: 36415; 80053; 84443; 85025; 87086; 87088

== ENCOUNTER → 2018-10-26 15:55 | Outpatient (CLI) | payer MEDICARE, SELFPAY ==
[2018-10-26 18:14] LABS: Absolute Lymphocyte Count 2.12 X10^3/ul (0.83-4.51); Absolute Neutrophil Count 7.5 X10^3/uL (2.0-7.7); Basophil# 0.02 X10^3/uL; Basophil% 0.2 % (0-1); Eosinophil# 0.06 X10^3/uL; Eosinophils% 0.6 % (0-5); Hematocrit 43.6 % (37-47); Hemoglobin 14.4 g/dl (12.0-15.0); Lymphocyte # 2.12 X10^3/ul (4.0); Lymphocyte % 19.7 % (19-41); Mean Corpuscular Hgb 30.4 pg (27.0-32.0); Mean Corpuscular Volume 92.2 fL (81-99); Mean Platelet Vol. 10.6 fl (6.2-12.0); Monocyte# 0.97 X10^3/uL; Neutrophil # 7.54 X10^3/uL (2.7-7.7); Neutrophil % 70.2 % (47-70); Platelet Count 306 K/mm3 (150-450); RBC Distribution Width CV 14.2 % (11.6-14.6); RBC Distribution Width SD 46.8 fl (35.1-43.9); Red Blood Count 4.73 M/mm3 (4.2-5.4); White Blood Count 10.7 K/mm3 (4.4-11.0)
[2018-10-26 18:17] LABS: POSITIVE COUNT NO; POSITIVE DIFFERENTIAL NO; POSITIVE MORPHOLOGY NO
[2018-10-26 18:23] LABS: Anion Gap 6 (5-15); BUN 19 mg/dL (7-18); BUN/Creat Ratio 14.5 RATIO (10-20); Calcium,Total 9.5 mg/dL (8.5-10.1); Chloride 103 mmol/L (98-107); Creatinine, Serum 1.31 mg/dL (0.55-1.02); EST Glomerular Filtration Rate 42 mL/min (>60); Est Glom Filt Rate - Afr Amer 51 mL/min (>60); Glucose 88 mg/dL (74-106); Potassium 4.3 mmol/L (3.5-5.1); Sodium Level 138 mmol/L (136-145)
== END ==
PROVIDERS: Family Provider Family Medicine Geriatric Medicine; PCP Family Medicine Geriatric Medicine; Visit Provider Family Medicine Geriatric Medicine
DX: F05 Delirium due to known physiological condition (principal)
CPT/HCPCS: 36415; 80048; 85025

== ENCOUNTER → 2018-10-26 17:39 | Outpatient (CLI) | payer MEDICARE, SELFPAY ==
--- NOTE | 2018-10-26 17:42 | CT_ITS ---
STUDY: CT BRAIN WITHOUT CONTRAST REASON FOR EXAM: Female, 77 years old. Injury RADIATION DOSAGE (If Supplied By Facility): DLP = ( 796.11 ) mGycm TECHNIQUE: Transaxial CT imaging of the brain was performed without administration of intravenous contrast material. Individualized dose optimization techniques were used for this CT. COMPARISON: None. FINDINGS: There is no acute bleed or infarct. There are prominent chronic ischemic and atrophic changes. 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 The ventricles are normal in configuration. There is no hydrocephalus. The visualized paranasal sinuses are clear. The mastoid air cells are well aerated. There is no skull fracture. CT/Brain/Head without Contrast IMPRESSION: No acute intracranial abnormality. Chronic changes described above. Electronically Signed: Alec Mccabe, at 18:02 EDT Tel , Service support ,
== END ==
PROVIDERS: Family Provider Family Medicine Geriatric Medicine; PCP Family Medicine Geriatric Medicine; Visit Provider Family Medicine Geriatric Medicine
DX: S09.90XA Unspecified injury of head, initial encounter (principal); X58.XXXA Exposure to other specified factors, initial encounter; F05 Delirium due to known physiological condition
CPT/HCPCS: 36415; 70450; 80048; 85025

== ENCOUNTER → 2018-11-22 14:40 | Outpatient (CLI) | payer MEDICARE, SELFPAY ==
[2018-11-22 17:23] LABS: Absolute Lymphocyte Count 2.31 X10^3/uL (0.83-4.51); Absolute Neutrophil Count 5.6 X10^3/uL (2.0-7.7); Basophil# 0.03 X10^3/uL; Basophil% 0.3 % (0-1); Eosinophils% 1.1 % (0-5); Hematocrit 44.8 % (37-47); Hemoglobin 14.4 g/dL (12.0-15.0); Lymphocyte # 2.31 X10^3/ul (4.0); Lymphocyte % 26.2 % (19-41); Mean Corp Hgb Conc 32.1 g/dL (32-36); Mean Corpuscular Volume 93.3 fL (81-99); Mean Platelet Vol. 10.5 fl (6.2-12.0); Monocyte% 9.1 % (0-10); NRBC Flagged by Analyzer 0 % (0-5); Neutrophil # 5.55 X10^3/uL (2.7-7.7); Platelet Count 335 K/mm3 (150-450); RBC Distribution Width SD 44.5 fl (35.1-43.9); White Blood Count 8.8 K/mm3 (4.4-11.0)
[2018-11-22 17:25] LABS: Vitamin D,25 Hydroxy 24.2 ng/mL (29.95-100.01)
[2018-11-22 17:33] LABS: AST(SGOT) 51 U/L (15-37); Alanine Aminotransfer ALT/SGPT 49 U/L (13-56); Albumin, Serum 3.8 g/dL (3.2-5.0); Alkaline Phosphatase 91 U/L (45-117); Anion Gap 9 (5-15); BUN 10 mg/dL (7-18); BUN/Creat Ratio 7.9 RATIO (10-20); Calcium,Total 8.9 mg/dL (8.5-10.1); Chloride 104 mmol/L (98-107); Creatinine, Serum 1.26 mg/dL (0.55-1.02); EST Glomerular Filtration Rate 44 mL/min (>60); Est Glom Filt Rate - Afr Amer 53 mL/min (>60); Globulin 3.8 g/dL (2.2-4.2); Glucose 86 mg/dL (74-106); Potassium 3.9 mmol/L (3.5-5.1); Protein, Total 7.6 g/dL (6.4-8.2); Sodium Level 139 mmol/L (136-145); Thyroid Stim Hormone (TSH) 1.44 uIU/mL (0.358-3.74)
== END ==
PROVIDERS: Family Provider Family Medicine Geriatric Medicine; PCP Family Medicine Geriatric Medicine; Visit Provider Family Medicine Geriatric Medicine
DX: E55.9 Vitamin D deficiency, unspecified (principal); I10 Essential (primary) hypertension
CPT/HCPCS: 36415; 80053; 82306; 84443; 85025

== ENCOUNTER → 2018-12-09 11:27 | Outpatient (CLI) | payer MEDICARE, SELFPAY ==
[2018-12-09 12:56] LABS: Absolute Lymphocyte Count 1.45 X10^3/uL (0.83-4.51); Absolute Neutrophil Count 6.2 X10^3/uL (2.0-7.7); Basophil# 0.03 X10^3/uL; Basophil% 0.3 % (0-1); Eosinophil# 0.11 X10^3/uL; Eosinophils% 1.2 % (0-5); Hematocrit 39.6 % (37-47); Hemoglobin 13.2 g/dL (12.0-15.0); Lymphocyte # 1.45 X10^3/ul (4.0); Lymphocyte % 16.3 % (19-41); Mean Corp Hgb Conc 33.3 g/dL (32-36); Mean Platelet Vol. 10.5 fl (6.2-12.0); Monocyte# 1.04 X10^3/uL; Monocyte% 11.7 % (0-10); NRBC Flagged by Analyzer 0 % (0-5); Neutrophil # 6.22 X10^3/uL (2.7-7.7); Neutrophil % 70.2 % (47-70); Platelet Count 313 K/mm3 (150-450); RBC Distribution Width SD 44.1 fl (35.1-43.9); Red Blood Count 4.26 M/mm3 (4.2-5.4); White Blood Count 8.9 K/mm3 (4.4-11.0)
--- NOTE | 2018-12-09 13:01 | RAD_ITS ---
We are attempting to reach an attending provider to discuss findings. An addendum with communication details will be sent when the communication is complete. STUDY: X-RAY CHEST REASON FOR EXAM: Female, 77 years old. Shortness of breath. TECHNIQUE: PA and lateral views of the chest. COMPARISON: May 10, 2017. FINDINGS: There is hyperinflation of the lungs consistent with chronic obstructive lung disease (COPD). There is enlargement of the right hilum with perihilar groundglass and airspace opacity. There is small right pleural effusion. Normal size heart. Normal visualized pulmonary arteries. There is atherosclerotic calcification of the aortic arch with tortuosity. There is demineralization of the osseous structures. Degenerative change of the spine. Normal visualized ribs, clavicles, and shoulders. There is no demonstrated abnormality of the visualized soft tissue structures of the upper abdomen. RAD/Chest PA and Lateral IMPRESSION: Right perihilar infiltrate or mass. Right pleural effusion. Consider CT scan for further evaluation. Electronically Signed: John Zamudio MD at 13:35 EDT , Service support ,
[2018-12-09 13:19] LABS: ALB/GLOB Ratio 0.7 RATIO (0.9-2.4); AST(SGOT) 72 U/L (15-37); Alanine Aminotransfer ALT/SGPT 43 U/L (13-56); Albumin, Serum 2.9 g/dL (3.2-5.0); Alkaline Phosphatase 109 U/L (45-117); Anion Gap 7 (5-15); BUN 16 mg/dL (7-18); BUN/Creat Ratio 15.7 RATIO (10-20); Calcium,Total 8.9 mg/dL (8.5-10.1); Chloride 106 mmol/L (98-107); Creatinine, Serum 1.02 mg/dL (0.55-1.02); EST Glomerular Filtration Rate 56 mL/min (>60); Est Glom Filt Rate - Afr Amer 68 mL/min (>60); Glucose 105 mg/dL (74-106); Potassium 4.1 mmol/L (3.5-5.1); Protein, Total 6.9 g/dL (6.4-8.2); Sodium Level 139 mmol/L (136-145); Thyroid Stim Hormone (TSH) 1.41 uIU/mL (0.358-3.74)
== END ==
LOC: POLAB3 11:29 → RAD 13:00
PROVIDERS: Family Provider Family Medicine Geriatric Medicine; PCP Family Medicine Geriatric Medicine; Referring Provider Family Medicine Geriatric Medicine; Visit Provider Family Medicine Geriatric Medicine
DX: F05 Delirium due to known physiological condition (principal); R53.83 Other fatigue; R06.89 Other abnormalities of breathing
CPT/HCPCS: 36415; 71046; 80053; 84443; 85025

== ENCOUNTER → 2018-12-22 16:18 | Outpatient (CLI) | payer MEDICARE, SELFPAY ==
--- NOTE | 2018-12-22 16:20 | CT_ITS ---
HISTORY:LUNG MASS FOUND ON CXRHX-+ SMOKER 1/2PPD LUNG MASS FOUND ON CXRHX-+ SMOKER 1/2PPD TECHNIQUE: Helically acquired images were obtained of the chest. A radiation dose optimization technique was used for this scan. IV Contrast dosage and agent: None. COMPARISON: Chest radiograph obtained on December 09, [address] the chest on March 14, 2008 FINDINGS: # of images incl. paperwork: [id number] HEART AND PERICARDIUM: Heart size is normal. There is no pericardial effusion. VESSELS: Thoracic aorta is not dilated. MEDIASTINUM AND KAYLIN: Study is limited without intravenous contrast. There is a right hilar mass and adenopathy that is seen on axial image 113 series 2. Zoster seen on coronal image 49 series 105. This measures approximately 6.7 cm transverse and approximately 5.8 cm craniocaudad approximately 6.9 cm AP. This does not superiorly vena cava seen on axial image 105 series 2. That context is difficult to assess for invasion. Also appears to surround the pulmonary artery again without contrast difficult to assess. There is mediastinal adenopathy. Precarinal lymph node measuring approximately 1.6 cm seen on axial image 84. There are also right pretracheal lymph nodes largest measuring approximately 1 cm. Her carinal adenopathy is noted however this may be secondary to invasion of the mass. There is also abuts the esophagus. There is obstruction of the bronchus intermedius on the right. The upper lobe bronchi are patent SOFT TISSUES: The thyroid gland is unremarkable No axillary adenopathy. LUNGS AND LARGE AIRWAYS: Centrilobular emphysematous changes are noted. There is groundglass opacity surrounding the right hilar mass with a secondary mass seen within the right upper lobe measuring approximately 2.2 cm transverse by approximately 1.8 cm AP segment axial image 112 series 4. Additional nodularity is seen within the right middle lobe as well as the anterior aspect of the right lower lobe. This may be secondary to postobstructive atelectasis/infiltrate a small groundglass nodule is seen within the left upper lobe on image 34 series 4 measuring approximately 3 mm and a second on image 31 series 4 measuring approximately 3 mm.. PLEURA: Unremarkable. No pleural effusion or thickening. UPPER ABDOMEN: Multiple low-density lesions in the liver suspected metastatic process. Probable periportal and periaortic nodes BONES: No suspicious lytic or blastic abnormality observed. CT/Chest without Contrast IMPRESSION: Right hilar mass as discussed. In addition there is surrounding nodularity and interstitial thickening. There is obstruction of the right bronchus intermedius. The mass does abut the superior vena cava. There is mediastinal adenopathy evaluation is limited without intravenous contrast Nodularity is seen within the right upper lobe and the right middle lobe as well as the anterior aspect of the right lower lobe and the superior left upper lobe as discussed Suspect diffuse metastatic disease in liver Suspect periportal and periaortic nodes within the upper abdomen Individualized dose optimization techniques were used for this CT. at 2019 Reported and signed by: Debby Tavares DO Electronically Signed: Debby Tavares DO at 20:18 EDT Tel , Service support ,
== END ==
PROVIDERS: Family Provider Family Medicine Geriatric Medicine; PCP Family Medicine Geriatric Medicine; Referring Provider Internal Medicine Pulmonary Disease; Visit Provider Internal Medicine Pulmonary Disease
DX: R91.1 Solitary pulmonary nodule (principal)
CPT/HCPCS: 71250

== ENCOUNTER 2018-12-26 10:52 | Emergency (ER) | payer MEDICARE, SELFPAY ==
[2018-12-26 10:53] VITALS: BP 169/89; PULSE 100; RESP 19; TEMP 36.7; O2SAT 94; BMI 23.3
--- NOTE | 2018-12-26 11:15 | ED.RN ---
PT DENIES CP. PT WAS SENT IN BY DR. PASCUAL FOR A MASS THAT WAS FOUND THROUGH IMAGING LAST WEEK. PT C/O RIB PAIN.
[2018-12-26 11:46] LABS: Absolute Lymphocyte Count 1.27 X10^3/uL (0.83-4.51); Absolute Neutrophil Count 9.6 X10^3/uL (2.0-7.7); Basophil# 0.02 X10^3/uL; Basophil% 0.2 % (0-1); Eosinophil# 0.01 X10^3/uL; Eosinophils% 0.1 % (0-5); Hematocrit 45.9 % (37-47); Hemoglobin 14.8 g/dL (12.0-15.0); Lymphocyte # 1.27 X10^3/ul (4.0); Lymphocyte % 10.6 % (19-41); Mean Corp Hgb Conc 32.2 g/dL (32-36); Mean Corpuscular Hgb 30.1 pg (27.0-32.0); Mean Corpuscular Volume 93.3 fL (81-99); Mean Platelet Vol. 10.8 fl (6.2-12.0); Monocyte# 1.09 X10^3/uL; Monocyte% 9.1 % (0-10); NRBC Flagged by Analyzer 0 % (0-5); Neutrophil # 9.57 X10^3/uL (2.7-7.7); Neutrophil % 79.6 % (47-70); Platelet Count 414 K/mm3 (150-450); RBC Distribution Width CV 14.6 % (11.6-14.6); RBC Distribution Width SD 49.2 fl (35.1-43.9); Red Blood Count 4.92 M/mm3 (4.2-5.4)
[2018-12-26 12:02] LABS: ALB/GLOB Ratio 0.7 RATIO (0.9-2.4); AST(SGOT) 224 U/L (15-37); Alanine Aminotransfer ALT/SGPT 93 U/L (13-56); Alkaline Phosphatase 288 U/L (45-117); Anion Gap 8 (5-15); BUN 30 mg/dL (7-18); BUN/Creat Ratio 22.4 RATIO (10-20); Calcium,Total 9.5 mg/dL (8.5-10.1); Chloride 108 mmol/L (98-107); Creatinine, Serum 1.34 mg/dL (0.55-1.02); EST Glomerular Filtration Rate 41 mL/min (>60); Est Glom Filt Rate - Afr Amer 50 mL/min (>60); Estimated Creatinine Clearance 29.55 ml/min; Globulin 4.1 g/dL (2.2-4.2); Glucose 94 mg/dL (74-106); Potassium 5.3 mmol/L (3.5-5.1); Protein, Total 7.1 g/dL (6.4-8.2); Sodium Level 140 mmol/L (136-145)
--- NOTE | 2018-12-26 12:03 | ED.DCSUM_ITS ---
History of Present Illness Chief Complaint: Chest Other Detail of Chief Complaint: Abnormal CAT scan Informant: Family Limited by: Dementia Onset: Weeks Quality: Malaise, shortness of breath Location: Generalized in respiratory Current Severity: Mild Maximum Severity: Severe Worsened by: Shortness of breath with minimal activity past 3 weeks. Relieved by: Nothing less dyspnea at rest Associated Symptoms: Patient with dementia Narrative: Patient is an elderly woman who was sent to the emergency room by ambulance after her interlocker reviewed CAT scan. According to family she had shortness of breath for past 3 weeks with decreased activity. She is not able to contribute because of dementia. There is been no documented fever. She has had a slight cough. She does not recall she is had night sweats or if she is lost weight. Prior similar symptoms: Yes Recent Illness/Hospitalization: Yes - Past Medical History (1) Hyperthyroidism Status: Acute (2) Wheezing Status: Acute (3) Allergic rhinitis Status: Chronic (4) COPD (chronic obstructive pulmonary disease) Status: Chronic Past Medical History - Allergies and Home Meds Allergies/Adverse Reactions: Allergies lisinopril Allergy (Verified 05/05/17 05:37) Other orange juice [[place] Juice] Allergy (Verified 05/05/17 05:37) Rash Penicillins Allergy (Verified 05/05/17 05:37) Rash Primary Care Physician: Hayden Kern Chi, MD [Primary Care Provider] - Prior records reviewed: Yes - CT that was performed as an outpatient was reviewed and reveals metastatic Surgical History: appendectomy, cataract, cholecystectomy Lives: Alone Smoking Status: Never smoker Alcohol: None Drugs: None - Family History Maternal Family History: Reports: Asthma Paternal Family History: Reports: No pertinent history Review of Systems ROS: Unable to Obtain - Patient is not a reliable informant General: Reports: Malaise. Denies: Chills, Fever, Sweats Eyes: Denies: Visual changes - bilaterally, Diplopia ENT: Denies: Rhinorrhea, Sore throat Cardiovascular: Reports: Chest pain Respiratory: Reports: Dyspnea, Dyspnea on exertion. Denies: Orthopnea, Paroxy smal nocturnal dyspnea Gastrointestinal: Denies: Abdominal pain, Nausea, Vomiting, Diarrhea, Melena, Hematochezia Genitourinary: Denies: Dysuria, Hematuria, Frequency Musculoskeletal: Denies: Back pain, Extremity Pain Skin: Denies: Rash, Wounds Neurological: Denies: Headache, Weakness, Numbness Hematologic: Denies: Easy bruising, Easy bleeding Allergy: Denies: Uticaria, Swelling of the mouth Physical Exam Vital Signs/Narrative: Vital Signs Temp Pulse Resp BP Pulse Ox 12/26/18 10:53 98.1 F 100 19 H 169/89 H 94 Inital Vital Signs reviewed: Yes General: Well nourished, Well developed, No Acute Distress Head: Normocephalic, Atraumatic. Negative for: Trauma, Tenderness Eyes: Perrl. Negative for: Pale conjunctiva, Scleral icterus ENT: No rhinorrhea, TM's clear Neck: Supple, Nontender, No lymphadenopathy, No JVD Cardiovascular: Regular rate, Regular rhythm, No murmurs, Normal S1, Normal S2 Respiratory: Chest nontender, Rales, Decreased Air Movement. Negative for: CTA bilaterally Abdomen: Soft, Nontender, Nondistended, Normal bowel sounds, No masses Rectal: Deferred Back: Nontender, Normal Inspection Extremities: Nontender, No edema Skin: Normal color, No rash Neurological: Cranial nerves II-XII grossly intact, Normal Strength, Normal Sensation. Negative for: Alert, Oriented x3 Psychological: Normal affect, Normal Mood Diagnostic/Tx/Re-eval Laboratory Results 12/26/18 12/26/18 11:38 11:38 WBC 12.0 H RBC 4.92 Hgb 14.8 Hct 45.9 MCV 93.3 MCH 30.1 MCHC 32.2 RDW Std Deviation 49.2 H RDW Coeff of Seth 14.6 Plt Count 414 MPV 10.8 Immature Gran % (Auto) 0.400 Neut % (Auto) 79.6 H Lymph % (Auto) 10.6 L [place] % (Auto) 9.1 Eos % (Auto) 0.1 Baso % (Auto) 0.2 Absolute Neuts (auto) 9.6 H Absolute Lymphs (auto) 1.27 Nucleated RBC % 0 Sodium 140 Potassium 5.3 H Chloride 108 H Carbon Dioxide 24.0 Anion Gap 8 BUN 30 H Creatinine 1.34 H Estim Creat Clear Calc 29.55 Est GFR (MDRD) Af Amer 50 L Est GFR (MDRD) Non-Af 41 L BUN/Creatinine Ratio 22.4 H Glucose 94 Calcium 9.5 Total Bilirubin 0.50 AST 224 H ALT 93 H Alkaline Phosphatase 288 H Total Protein 7.1 Albumin 3.0 L Globulin 4.1 Albumin/Globulin Ratio 0.7 L Potassium is slightly elevated 5.3. White count is slightly elevated as well. These are new findings from prior blood work obtained towards the end of November. Had lengthy discussion with Adelfo the CAMILLAA. He contacted his brother. Had a another lengthy discussion with the entire family. They asked many questions. Questions were answered the best of my ability and when I did not know the answer I informed him that I do not know the answer based on the amount of i nformation and data points that I have at the time of this discussion. They are all in agreement that they want their mother to be comfortable. Case management was consulted regarding end-of-life issues, palliative care versus hospice care etc. Time of initial discussion and family discussion 25 minutes - Medical Decision Making Right hilar mass as discussed. In addition there is surrounding nodularity and interstitial thickening. There is obstruction of the right bronchus intermedius. The mass does abut the superior vena cava. There is mediastinal adenopathy evaluation is limited without intravenous contrast Nodularity is seen within the right upper lobe and the right middle lobe as well as the anterior aspect of the right lower lobe and the superior left upper lobe as discussed Suspect diffuse metastatic disease in liver Suspect periportal and periaortic nodes within the upper abdomen Individualized dose optimization techniques were used for this CT. Recent blood work was obtained. Obtain blood work for comparison. Discussed with family results of CAT scan. Spoke with Adelfo who is the POA and present. He was informed of CT results he informed me that mother has no memory. He would like to call his sibling that is not here and speak with his sister who is here. Initially spoke with Adelfo QURESHI, who is her son. He spoke with other siblings. After discussion with other siblings had another lengthy discussion with the entire family. After answering the questions to the best of my ability they wish for their mother to make comfortable. franchise development manager was consulted and arrangements were made for home hospice. Total time of family conference to assist with disposition 25 minutes. ED Disposition - Plan for ED Patient: Disposition: Home or Assisted Living Diagnosis: Metastatic primary lung cancer, Dyspnea Instructions: Living with Lung Cancer Prescriptions: Hydrocodone Bitart/Apap 5-325 [Carmel 5MG-325MG] 1 tablet PO Q6H PRN PRN 25 Days #100 tablet PRN Reason: Pain Transmission Status: Sent to [id number] Referrals: Hayden Kern Chi, MD [Primary Care Provider] - As Needed Additional Instructions: Your prescription was electronically transmitted to [facility] pharmacy located on [facility]
[2018-12-26 13:10] VITALS: BP 159/112; PULSE 102; RESP 22
--- NOTE | 2018-12-26 13:57 | CM.ED ---
Social Work Consult: Hospice Referral Informant: Dr. Booth Collaborating with Dr. Booth. Dr. Booth stating to have spoken to family and patient in regards to hospice services and all are agreeable. Met with patient and patient family in room. This social studies department chair introduced self as well as social studies department chair role. Patient and patient family are voicing to understand current situation and would like a referral placed to [facility] services to follow up with patient and patient family within the community after discharge from ED. List was provided to patient and patient family of hospice services and [facility] is what patient and patient family would like to go with. Referral placed to [facility] and clinical information faxed. [facility] to follow up with patient and patient family. Support provided. Dr. Booth updated on plan and is agreeing as patient is currently no under distress per Dr. Booth and patient. Donna Reynoso OIL REFINER, JENNA
[2018-12-26] MEDS: HYDROcodone Bitartrate/Apap 5/325 Tablet PO (14:36)
[2018-12-26 14:49] VITALS: BP 164/93; PULSE 91; RESP 20; O2SAT 97
== END 2018-12-26 14:49 | disposition home or self-care (01) ==
PROVIDERS: Emergency Provider Emergency Medicine; Family Provider Family Medicine Geriatric Medicine; PCP Family Medicine Geriatric Medicine
DX: C34.90 Malignant neoplasm of unspecified part of unspecified bronchus or lung (principal); C79.9 Secondary malignant neoplasm of unspecified site; E05.90 Thyrotoxicosis, unspecified without thyrotoxic crisis or storm; J44.9 Chronic obstructive pulmonary disease, unspecified; F03.90 Unspecified dementia, unspecified severity, without behavioral disturbance, psychotic disturbance, mood disturbance, and anxiety; Z79.82 Long term (current) use of aspirin; Z79.899 Other long term (current) drug therapy
CPT/HCPCS: 80053; 85025; 99285